=== PATIENT | female | born 1945 | race Caucasian/White ===

== ENCOUNTER → 2020-10-09 15:53 | Outpatient (CLI) | payer MEDICARE, OTHER, SELFPAY ==
--- NOTE | 2020-10-09 16:00 | XR_ITS ---
PROCEDURE: XR CHEST 2V CLINICAL HISTORY: rub on left Abnormal breath sounds COMPARISON: No exams were available for comparison FINDINGS: Normal heart size. Bipolar pacemaker is present from the right subclavian approach. There is an additional pacer wire noted from left subclavian approach terminating in the region of the right ventricle. The lungs are clear without infiltrates, suspicious nodules, or pleural effusions. No acute bony abnormalities. IMPRESSION: No acute findings. Dictated by: Aaron Melara MD 10/10/2020 11:43 Aaron Melara MD in [place] 10/10/2020 11:43
== END ==
PROVIDERS: PCP Family Medicine; Visit Provider Family Medicine
DX: M54.9 Dorsalgia, unspecified (principal)
CPT/HCPCS: 71046

== ENCOUNTER 2021-02-18 19:53 | Emergency (ER) | payer MEDICARE, OTHER, SELFPAY ==
[2021-02-18 20:42] VITALS: BP 147/66; PULSE 73; RESP 16; TEMP 36.7; O2SAT 96; BMI 20.7
--- NOTE | 2021-02-18 20:42 | ECG_ITS ---
APPROVED REPORT Exam: Resting ECG HR:65 bpm ECG Measurements Heart Rate 65 AXES CA 154 P 84 QRSd 66 QRS 44 QT 378 T 56 QTc 393 Conclusion Normal sinus rhythm Left atrial abnormality with nonspecific ST-T wave changes Abnormal ECG Electronically signed by : Emir Jeter, 02/20/2021 17:39:58
[2021-02-18 21:13] LABS: Basophils # 0.1 K/mm3 (0-0.2); Basophils % 0.7 % (0.1-2.0); Chloride 107 mmol/L (98-107); Eosinophils # 0.1 K/mm3 (0.0-0.4); Eosinophils % 0.8 % (0.1-12.0); Lymphocytes # 2.5 K/mm3 (0.7-4.5); Mean Corpuscular HGB Conc 32.6 g/dL (31.8-35.4); Mean Corpuscular Hemoglobin 32.1 pg (27.0-31.2); Mean Corpuscular Volume 98.6 fl (81-99); Mean Platelet Volume 7.8 fl (7.4-10.4); Monocytes # 1.1 K/mm3 (0.1-1.0); Monocytes % 7.1 % (1.7-9.3); Neutrophils # 11.9 K/mm3 (1.8-7.8); Neutrophils % 75.5 % (37.0-80.0); Platelet Count 267 K/mm3 (142-424); Potassium 3.9 mmoL/L (3.5-5.1); Red Blood Count 4.37 M/mm3 (4.20-5.40); Red Cell Distribution Width 12.9 % (11.5-17.5); Sodium 140 mmol/L (136-145); White Blood Count 15.7 K/mm3 (4.8-10.8)
[2021-02-18 21:16] LABS: Alanine Aminotransferase 13 U/L (12-78); Albumin Level 4.3 g/dl (3.5-5.0); Alkaline Phosphatase 114 U/L (38-126); Anion Gap 9.9 mEq/L (5-15); Aspartate Amino Transferase 21 U/L (14-36); Bilirubin,Direct 0.3 mg/dl (0.0-0.4); Bilirubin,Total 0.3 mg/dl (0.2-1.3); Blood Urea Nitrogen 15 mg/dl (7-17); Carbon Dioxide 27 mmol/L (22.0-30.0); Creatinine Clearance Estimated 38 mL/min (50-200); Estimated Glomerular Filt Rate 70 ml/min (>60); GFR (African American) 85 ML/MIN (>60); Glucose 104 mg/dl (74-100); Total Protein,Serum 7.3 g/dl (6.3-8.2)
[2021-02-18 21:20] LABS: MANUAL DIFFERENTIAL MANUAL DIFFERENTIAL (MANUAL DIFF)
[2021-02-18 21:26] LABS: Microscopic, Urine URINE MICROSCOPIC (MICROSCOPIC)
[2021-02-18 21:31] LABS: Troponin I < 0.01 ng/ml (0.00-0.034)
[2021-02-18 21:31] LABS: Appearance,Urine CLEAR (Clear); Bilirubin,Urine Negative (Negative); Blood, Urine Negative (Negative); Color,Urine YELLOW (Yellow); Glucose,Urine (UA) Negative (Negative); Ketones,Urine Negative (Negative); Leukocyte Esterase,Urine TRACE (Negative); Nitrate,Urine Negative (Negative); PH,Urine 6.5 (5.0-8.5); Protein,Urine Negative (Negative); Specific Gravity, Urine 1.015 (1.005-1.030); Urobilinogen,Urine 0.2 EU/dl (0.2)
[2021-02-18 21:34] LABS: T4 (Thyroxine) 7.9 ug/dl (5.53-11.0)
[2021-02-18 21:35] LABS: Bacteria,Urine 1+ /lpf; WBC,Urine Occasional #/hpf (0-3)
--- NOTE | 2021-02-18 21:42 | CT_ITS ---
PROCEDURE INFORMATION: Exam: CTA Chest With Contrast Exam date and time: 02/18/21 09:42 PM Age: 75 years old Clinical indication: Angina and other: Fast heart rate and hot flashes; Prior surgery; Surgery date: 6+ months; Surgery type: Pacemaker; Patient HX: Chest pain, hot flashes, fast heart rate; Additional info: RO pe TECHNIQUE: Imaging protocol: Computed tomographic angiography of the chest with contrast. 3D rendering (Not supervised by radiologist): MIP and/or 3D reconstructed images were created by the technologist. Radiation optimization: All CT scans at this facility use at least one of these dose optimization techniques: automated exposure control; mA and/or kV adjustment per patient size (includes targeted exams where dose is matched to clinical indication); or iterative reconstruction. Contrast material: ISOVUE 370; Contrast volume: 70 ml; Contrast route: INTRAVENOUS (IV); COMPARISON: CR XR CHEST 2V 10/09/20 04:03 PM FINDINGS: Pulmonary arteries: No CT evidence of pulmonary embolus. Aorta: No CT evidence of aortic dissection. Lungs: Mucous plugging left lower lobe bronchus. Patchy infiltrate left upper lobe laterally. Pleural spaces: Unremarkable. No pneumothorax. No pleural effusion. Heart: Unremarkable. No cardiomegaly. No pericardial effusion. Lymph nodes: Unremarkable. No enlarged lymph nodes. Gallbladder and bile ducts: Cholecystectomy. Kidneys and ureters: Hyperdense cyst ventral left midpole of the kidney. Multiphase cross-sectional imaging recommended for further characterization. Bones/joints: Unremarkable. No acute fracture. Soft tissues: Unremarkable. IMPRESSION: 1. No CT evidence of pulmonary embolus. 2. No CT evidence of aortic dissection. 3. Mucous plugging left lower lobe bronchus. 4. Hyperdense cyst ventral left midpole of the kidney. Multiphase cross-sectional imaging recommended for further characterization. 5. Cholecystectomy. 6. Patchy infiltrate left upper lobe laterally. COMMENTS: Consistent with the [employer]'s Incidental Findings Committee white paper (J Am Calderon Radiol 2018): Any incidental renal lesion less than 1 cm or classified as too small to characterize, or any incidental cystic renal lesion characterized as simple-appearing, is likely benign. No follow-up imaging is recommended for these lesions per consensus recommendations based on imaging criteria.
[2021-02-18 21:48] LABS: Lymphocytes % 11 % (10-50); Monocytes % 5 % (2-9); Neutrophils % 83 % (42-76); Platelet Estimate Normal; Stomatocytes 1+; Thyroid Stimulating Hormone 0.84 uIU/mL (0.465-4.68); Total Cells Counted 100
--- NOTE | 2021-02-18 23:46 | HMH.EDARPALP ---
ED Disposition Clinical Impression: Palpitations Disposition: Home, Self-Care Condition on Discharge: Good Prescriptions: Amoxicillin/Potassium Clav [Augmentin 875-125 Tablet] 1 tab PO Q12H #7 tab Prescription Printed Referrals: Jamil Villeda MD [Primary Care Provider] - - Critical Care Critical Care Time: No Attestation: On 02/18/21, the high probability of a clinically significant, sudden or life threatening deterioration of the following system(s) required my full and direct attention, intervention and personal management. The time I documented below is in addition to time spent performing reported procedures but includes the following listed in this critical care notation. Medical Decision Making - Medical Records Medical records reviewed: Yes: I reviewed the patient's medical records. - Alexey Inquiry Pt receiving controlled substance: No Vital Signs: 02/18/21 20:42 Temperature 98.0 F Temperature Source Oral Pulse Rate [Right Brachial] 73 Respiratory Rate 16 Blood Pressure [Right Arm] 147/66 H Blood Pressure Mean [Right Arm] 93 Blood Pressure Source [Right Arm] Automatic Cuff Blood Pressure Position [Right Arm] Sitting 02 Sat by Pulse Oximetry 96 Oxygen Delivery Method Room Air - Lab Data Lab Results 02/18/21 20:25: WBC 15.7 H, RBC 4.37, Hgb 14.0, Hct 43.0, MCV 98.6, MCH 32.1 H, MCHC 32.6, RDW 12.9, Plt Count 267, MPV 7.8, Neut % (Auto) 75.5, Lymph % (Auto) 16.0, [place] % (Auto) 7.1, Eos % (Auto) 0.8, Baso % (Auto) 0.7, Neut # (Auto) 11.9 H, Lymph # (Auto) 2.5, [place] # (Auto) 1.1 H, Eos # (Auto) 0.1, Baso # (Auto) 0.1, Total Counted 100, Neutrophils % (Manual) 83 H, Lymphocytes % (Manual) 11, Monocytes % (Manual) 5, Basophils % (Manual) 1.0, Platelet Estimate Normal, Stomatocytes 1+ 02/18/21 20:25: Sodium 140, Potassium 3.9, Chloride 107, Carbon Dioxide 27, Anion Gap 9.9, BUN 15, Creatinine 0.80, Estimated Creat Clear 38, Estimated GFR 70, Est GFR ( Amer) 85, Glucose 104 H, Calcium 9.0, Total Bilirubin 0.3, Direct Bilirubin 0.3, Conjugated Bilirubin 0.0, Indirect Bilirubin 0.0, Unconjugated Bilirubin 0.0, AST 21, ALT 13, Alkaline Phosphatase 114, Troponin I < 0.01, Total Protein 7.3, Albumin 4.3, TSH 0.84, Thyroxine (T4) 7.9 02/18/21 21:00: Urine Color Yellow, Urine Appearance Clear, Urine pH 6.5, Ur Specific [place] 1.015, Urine Protein Negative, Urine Glucose (UA) Negative, Urine Ketones Negative, Urine Blood Negative, Urine Nitrate Negative, Urine Bilirubin Negative, Urine Urobilinogen 0.2, Ur Leukocyte Esterase Trace, Urine WBC Occasional, Ur Squamous Epith Cells 3-5, Urine Bacteria 1+ Result diagrams: 02/18/21 20:25 02/18/21 20:25 Orders (Tests/Meds): ED MEDICATIONS Discontinued Medications Generic Name Dose Route Start Last Admin Trade Name Freq PRN Reason Stop Dose Admin Iopamidol 70 ml 02/18/21 22:06 02/18/21 22:08 Iopamidol-370 (76%);100ml Bottle IV 02/18/21 22:07 70 ml ONCE ONE Administration Sodium Chloride 40 ml 02/18/21 22:06 02/18/21 22:08 0.9 % Sodium Chloride 50 Ml Vial IV 02/18/21 22:07 40 ml ONCE ONE Administration Sodium Chloride 10 ml 02/18/21 22:06 02/18/21 22:08 Sodium Chloride 0.9% 10ml Syr (Rad Only) IV 02/18/21 22:07 10 ml ONCE ONE Administration ORDERS Category Date Time Status Troponin I Q3H Lab 02/18/21 23:50 Ordered Troponin I Q3H Lab 02/19/21 02:50 Ordered Medical Decision Narrative: Is a 75-year-old female who presents the emergency department today with palpitations and a warm sensation. Differential includes arrhythmia, ACS, PE. Basic labs obtained and are nonactionable. Troponin less than 1 initially. EKG showed normal sinus rhythm. CT PE ordered and showed a possible left upper lobe infiltrate. White count 15. Given prescription for Augmentin. Instructed to follow-up with slate roofer helper and primary care physician for possible Holter monitor. Also instructed to follow-up for lower extremity
[2021-02-18 23:53] VITALS: BP 142/74; PULSE 71; RESP 18; TEMP 36.8; O2SAT 98
== END 2021-02-18 23:56 | disposition home or self-care (01) ==
PROVIDERS: Emergency Provider Emergency Medicine; PCP Family Medicine
DX: R00.2 Palpitations (principal); N39.0 Urinary tract infection, site not specified; J44.9 Chronic obstructive pulmonary disease, unspecified; Z95.0 Presence of cardiac pacemaker; F17.210 Nicotine dependence, cigarettes, uncomplicated; Z96.641 Presence of right artificial hip joint; Z88.5 Allergy status to narcotic agent
CPT/HCPCS: 71275; 80048; 80076; 81001; 84436; 84443; 84484; 85007; 85025; 93005; 99283; Q9967

== ENCOUNTER → 2021-03-05 11:00 | Outpatient (CLI) | payer MEDICARE, OTHER, SELFPAY ==
--- NOTE | 2021-03-05 | CA_ITS ---
APPROVED REPORT Exam: Pharmacologic Technologist: Oriana Quintanilla, Ht: 5 ft 1 in Wt: 109 lbs BSA: 1.46 m2 HR: 61 bpm BP: 132/64 mmHg Medical History Medications: Omeprazole,,,,, Aspirin,,,,, Gabapentin,,,,, Lasix,,,,, Digoxin,,,,, DilTAZEM HCI,,,,, Stress Test Details Test: LEXISCAN HR Resting HR: 61 bpm Max Heart Rate (APMHR): 145.423549 bpm Max HR Achieved: 68 bpm Target HR (85% APMHR): 123.141847 bpm % of APMHR: 46.90 Recovery HR: 64 bpm BP Resting BP: 132/64 mmHg Max BP: 132/64 mmHg Recovery BP: 117.0/48.0 mmHg ECG Resting ECG: NSR, normal Clinical Exercise duration: 04:00 min Highest Stage Achieved: Exercise capacity: 1.0 METs Stress ECG Conclusion Symptoms: Mild SOA, mild nausea, malaise. No CP. Arrhythmias/Ectopy: None. ST-T Changes: No significant changes. Conclusion: Unremarkable Lexiscan stress. Myoview images reported separately. Electronically signed by : Jacky Luu, 03/07/2021 09:22:36
--- NOTE | 2021-03-05 11:00 | NM_ITS ---
APPROVED REPORT Exam: Nuclear Stress Test Indication: Abnormal EKG, Palpitations, CAD, Hx of [place], HTN, Tobacco use, Family history Patient Location: Outpatient Stress Tech: Oriana Quintanilla [place] Tech:Sushma Joiner, ARRT, RT (R)(N) Ht: 5 ft 1 in Wt: 109 lbs Bra Size: 32A HR: 61 bpm BP: 132/64 mmHg BSA: 1.46 m2 BMI: 20.5 History: Abnormal EKG, Palpitations, CAD, Hx of [place], HTN, Tobacco use, Family history Procedure: Patient received a 0.4 mg of intravenous Lexiscan, resting heart rate 61 bpm, resting blood pressure 132/64 mmHg, with Lexiscan maximum heart rate achived was 67 bpm which is % of the maximum predicted heart rate and blood pressure was 115/50 mmHg. With Lexiscan, patient denied any complaint of chest pain. Cardiac Stress and Resting SPECT Images: Cardiac Stress and Resting SPECT images were obtained using technetium 99m Myoview 31.6 mCi stress and 10.90 mCi at rest. Low EF of 49% with apical hypokinesia Fixed defect in the apex suggesting an area of infarction Small reversible defect holly apical region suggesting an area of ischemia Conclusion: Low EF of 49% with apical hypokinesia Fixed defect in the apex suggesting an area of infarction Reversible defect holly apical region and questionable reversible defect infero septal region suggesting areas of ischemia Electronically signed by : Aaron Melara MD 03/07/2021 10:53:33
--- NOTE | 2021-03-05 12:54 | HMH.ITSHM ---
Current Home Medications as stated by this patient Caro Walker or account development representative. []OMEPRAZOLE HYDOCODONE GABAPENTIN FUROSEMIDE DILTIAZEM DIGOXIN ASA
== END ==
PROVIDERS: PCP Family Medicine; Visit Provider Internal Medicine Cardiovascular Disease
DX: I51.7 Cardiomegaly (principal); R00.2 Palpitations; R61 Generalized hyperhidrosis; R94.31 Abnormal electrocardiogram [ECG] [EKG]; I48.0 Paroxysmal atrial fibrillation
CPT/HCPCS: 78452; 93017; 93306; A9502; J2785

== ENCOUNTER → 2021-04-02 06:48 | Outpatient (CLI) | payer SELFPAY ==
--- NOTE | 2021-04-02 06:50 | CT_ITS ---
PROCEDURE: CT HEART W CALCIUM SCORE CLINICAL HISTORY: abnormal stress test COMPARISON: No exams were available for comparison TECHNIQUE: Axial images obtained with sagittal and coronal reformats. All CT scans at the facility use one or more dose reduction, viz: automated exposure control, ma/kV adjustment per patient size (including targeted exams where dose is matched to indication, i.e. head), or iterative reconstruction technique. FINDINGS: Coronary artery calcium score is 700. Extensive calcific plaque burden with very high cardiovascular disease risk Artifact is present from bipolar pacemaker. There is a small area of ground-glass opacity in the left lower lobe posteriorly at 11 mm. IMPRESSION: Extensive calcific plaque burden with very high cardiovascular disease risk Dictated by: Aaron Melara MD 04/02/2021 16:11 Aaron Melara MD in [place] 04/02/2021 16:11
== END ==
PROVIDERS: PCP Family Medicine; Visit Provider Internal Medicine Cardiovascular Disease
DX: Z13.6 Encounter for screening for cardiovascular disorders (principal); R94.39 Abnormal result of other cardiovascular function study
CPT/HCPCS: 75571

== ENCOUNTER → 2021-04-11 08:00 | Outpatient (CLI) | payer MEDICARE, OTHER, SELFPAY | PROVIDERS: Visit Provider Family Medicine | DX: L08.9 Local infection of the skin and subcutaneous tissue, unspecified (principal); T14.8XXA Other injury of unspecified body region, initial encounter | CPT/HCPCS: 87070; 87077; 87186; 87205 ==

== ENCOUNTER → 2021-05-14 11:36 | Outpatient (CLI) | payer MEDICARE, OTHER, SELFPAY ==
[2021-05-14 12:26] LABS: Basophils # 0.1 K/mm3 (0-0.2); Basophils % 0.6 % (0.1-2.0); Eosinophils # 0.1 K/mm3 (0.0-0.4); Eosinophils % 0.7 % (0.1-12.0); Hematocrit 48.1 % (37.0-47.0); Hemoglobin 15.2 g/dL (12.2-16.2); Lymphocytes # 3.9 K/mm3 (0.7-4.5); Lymphocytes % 28.7 % (10-50); Mean Corpuscular HGB Conc 31.6 g/dL (31.8-35.4); Mean Corpuscular Hemoglobin 32.7 pg (27.0-31.2); Mean Corpuscular Volume 103.7 fl (81-99); Mean Platelet Volume 7.5 fl (7.4-10.4); Monocytes # 0.9 K/mm3 (0.1-1.0); Monocytes % 6.3 % (1.7-9.3); Neutrophils # 8.6 K/mm3 (1.8-7.8); Neutrophils % 63.7 % (37.0-80.0); Platelet Count 306 K/mm3 (142-424); Red Blood Count 4.64 M/mm3 (4.20-5.40); Red Cell Distribution Width 13.4 % (11.5-17.5); White Blood Count 13.5 K/mm3 (4.8-10.8)
[2021-05-14 13:33] LABS: Chloride 106 mmol/L (98-107); Potassium 4.8 mmoL/L (3.5-5.1); Sodium 141 mmol/L (136-145)
[2021-05-14 13:36] LABS: Anion Gap 13.8 mEq/L (5-15); Blood Urea Nitrogen 11 mg/dl (7-17); Calcium 9.4 mg/dl (8.4-10.2); Carbon Dioxide 26 mmol/L (22.0-30.0); Estimated Glomerular Filt Rate 82 ml/min (>60); GFR (African American) 99 ML/MIN (>60); Glucose 94 mg/dl (74-100)
== END ==
PROVIDERS: Visit Provider Internal Medicine Cardiovascular Disease
DX: I10 Essential (primary) hypertension (principal); I48.0 Paroxysmal atrial fibrillation; R93.1 Abnormal findings on diagnostic imaging of heart and coronary circulation; R94.31 Abnormal electrocardiogram [ECG] [EKG]; R94.39 Abnormal result of other cardiovascular function study; Z95.0 Presence of cardiac pacemaker; Z01.812 Encounter for preprocedural laboratory examination; Z20.822 Contact with and (suspected) exposure to COVID-19; U07.1 COVID-19
CPT/HCPCS: 36415; 80048; 85025; C9803; U0003; U0005

== ENCOUNTER 2021-09-03 13:27 | Emergency (ER) | payer MEDICARE, OTHER, SELFPAY ==
[2021-09-03 15:10] VITALS: BP 149/70; PULSE 72; RESP 20; TEMP 36.8; O2SAT 98; BMI 20.9
--- NOTE | 2021-09-03 16:00 | HMH.EDUTC ---
[facility] [place] Impression: Nausea Disposition: Home, Self-Care Condition on Discharge: Good Instructions: DI for Nausea -- Adult, Ondansetron Additional Instructions: Drink extra fluids with and between meals. If you have difficulty drinking, try very small amounts of water or suck on ice chips. ? Avoid fruit juices, as these do not replace minerals and can actually increase diarrhea. ? Children and adults can use sports drinks to replenish electrolytes. Younger children and infants should use products formulated for children, like oral rehydration solutions. ? Eat food in small amounts and let your stomach recover. ? Get lots of rest. You may feel tired or weak. ? No greasy or fried foods for the next 24-48 hours BRAT diet Bananas Rice Apples and [place] ? Make sure to drink plenty of liquids ? Return if needed ? Straight to ER if any life threatening symptoms ? Zofran as prescribed ? Follow up with family doctor in the next 48-72 hours if no improvement or any worsening of symptoms Prescriptions: Ondansetron [Zofran 4mg ODT] 4 mg PO TIDP PRN #20 tab PRN Reason: Nausea Transmission Status: Pending to [facility] Referrals: Jamil Villeda MD [Primary Care Provider] - As needed Medical Decision Making - Alexey Inquiry Pt receiving controlled substance: No Alexey was queried for this patient: No Vital Signs: 09/03/21 15:10 Temperature 98.2 F Temperature Source Oral Pulse Rate [Left Brachial] 72 Respiratory Rate 20 Blood Pressure [Left Arm] 149/70 H Blood Pressure Mean [Left Arm] 96 Blood Pressure Source [Left Arm] Automatic Cuff Blood Pressure Position [Left Arm] Sitting 02 Sat by Pulse Oximetry 98 Oxygen Delivery Method Room Air Orders (Tests/Meds): ED MEDICATIONS Discontinued Medications Generic Name Dose Route Start Last Admin Trade Name Freq PRN Reason Stop Dose Admin Ondansetron HCl 4 mg 09/03/21 16:10 09/03/21 16:12 Ondansetron 4mg Odt SL 09/03/21 16:11 4 mg ONCE ONE Administration Medical Decision Narrative: Patient state that she has taken zofran before without complications or reactions [facility] [place] - General Stated complaint: nausea, rapid HR Time Seen by Provider: 09/03/21 16:05 Mode of Arrival: Ambulatory Source of Information: Patient Limitations: No Limitations Description of Symptoms (Recalled from Triage Doc. by RN): PATIENT C/O NAUSEA AND A FEELING OF A HEARTBEAT IN HER UPPER ABDOMEN. SHE STATES IT HAS BEEN GOING ON FOR A WHILE AND HAS SEEN SEVERAL PROVIDERS REGARDING THESE SYMPTOMS BUT IS NOT BETTER HEENT Symptoms (Recalled from RN notes): No Resp Symptoms (Recalled from RN notes): No Skin Symptoms (Recalled from RN notes): No MS Symptoms (Recalled from RN notes): No Functional Status (Recalled from RN notes): WNL - History of Present Illness Provider Complaint: Patient state that she has been undergoing testing and xrays to see why she is having nausea and pain on and off State that today she has been having nausea and feeling like she is going to vomit and she is out of her nausea medication and she came in to see if she could get some while she is waiting to be seen by GI Denies pain today - Related Data Home Medications Medication Instructions Recorded Confirmed aspirin 81 mg tablet,delayed 81 mg PO DAILY 02/21/21 08/13/21 release furosemide 20 mg tablet 20 mg PO DAILY tab 02/21/21 08/13/21 Previous Rx's Medication Instructions Recorded omeprazole 20 mg capsule,delayed 20 mg PO DAILY #90 cap 09/28/20 release nicotine 14 mg/24 hr daily 1 patch TRANSDERMA Q24H #28 each 02/25/21 transdermal patch atorvastatin 20 mg tablet 20 mg PO DAILY #90 tab 03/07/21 digoxin 125 mcg (0.125 mg) tablet 125 mcg PO DAILY #30 tab 04/11/21 diltiazem HCl 120 mg 120 mg PO QHS #30 cap 04/11/21 capsule,extended release 12 hr diltiazem HCl 240 mg 240 mg PO DAILY #30 cap 04/11/21 capsule,extended release 24 hr mupirocin 2 % topical
[2021-09-03 16:13] VITALS: BP 149/70; PULSE 72; RESP 20; TEMP 36.8; O2SAT 98
== END 2021-09-03 16:18 | disposition home or self-care (01) ==
PROVIDERS: Emergency Provider Nurse Practitioner; PCP Family Medicine
DX: R11.2 Nausea with vomiting, unspecified (principal); I48.91 Unspecified atrial fibrillation; I10 Essential (primary) hypertension; Z95.0 Presence of cardiac pacemaker; Z96.641 Presence of right artificial hip joint; F17.210 Nicotine dependence, cigarettes, uncomplicated; J44.9 Chronic obstructive pulmonary disease, unspecified; Z79.899 Other long term (current) drug therapy
CPT/HCPCS: G0463; 99202

== ENCOUNTER 2022-03-28 16:52 | Emergency (ER) | payer MEDICARE, OTHER, SELFPAY ==
[2022-03-28 16:53] VITALS: BP 138/41; PULSE 72; RESP 16; TEMP 37.2; O2SAT 98; BMI 20.9
--- NOTE | 2022-03-28 17:36 | XR_ITS ---
PROCEDURE INFORMATION: Exam: XR Left Ankle Exam date and time: 03/28/2022 5:37 PM Age: 76 years old Clinical indication: Pain; Swelling, leg or foot; Ankle; Left TECHNIQUE: Imaging protocol: Radiologic exam of the Left ankle. Views: 3 or more views. COMPARISON: No relevant prior studies available. FINDINGS: Bones/joints: Small plantar calcaneal spur. Question mild Robyn deformity of the superior margin of the posterior calcaneal tubercle. No fractures. Osteopenia. No blastic or lytic lesions. The ankle mortise joint is well maintained. No joint effusion. The visualized hindfoot and midfoot are grossly well aligned. No hindfoot coalition. Soft tissues: No periostitis or osteolysis. Moderate soft tissue swelling around the ankle and distal leg, predominantly laterally IMPRESSION: 1. No osseous injuries. 2. Moderate soft tissue swelling, predominantly laterally, nonspecific. 3. Small plantar calcaneal spur and mild Robyn deformity.
--- NOTE | 2022-03-28 17:37 | XR_ITS ---
PROCEDURE INFORMATION: Exam: XR Left Foot Exam date and time: 03/28/2022 5:39 PM Age: 76 years old Clinical indication: Pain; Foot; Left TECHNIQUE: Imaging protocol: Radiologic exam of the Left foot. Views: 3 or more views. COMPARISON: CR XR ANKLE LT MIN 3V 03/28/2022 5:37 PM FINDINGS: Bones/joints: Osteopenia. No fractures. Normal alignment is maintained in the midfoot, hindfoot, and forefoot. Minor interphalangeal osteoarthritic changes and minor osteoarthritic changes in the midfoot. No blastic or lytic lesions. Small bunion at the medial 1st metatarsal head. No gross ankle joint effusion. No hindfoot coalition. Small plantar calcaneal spur. Soft tissues: No periostitis or osteolysis. Moderate soft tissue swelling around the ankle. No radiopaque foreign bodies. IMPRESSION: 1. No fractures are identified. 2. Osteopenia and mild osteoarthritic changes with small bunion. 3. Mild plantar calcaneal spurring. 4. Soft tissue swelling around the ankle.
--- NOTE | 2022-03-28 18:58 | HMH.EDGENADL ---
ED Disposition Clinical Impression: Left leg swelling Disposition: Home, Self-Care Condition on Discharge: Good Additional Instructions: You will receive a call tomorrow from the vascular lab giving you a time to come in for a Doppler of the lower leg. Follow-up with primary care provider next week. Referrals: Jamil Villeda MD [Primary Care Provider] - - Critical Care Critical Care Time: No Attestation: On 03/28/22, the high probability of a clinically significant, sudden or life threatening deterioration of the following system(s) required my full and direct attention, intervention and personal management. The time I documented below is in addition to time spent performing reported procedures but includes the following listed in this critical care notation. Medical Decision Making - Alexey Inquiry Pt receiving controlled substance: No Vital Signs: 03/28/22 16:53 Temperature 99 F Temperature Source Oral Pulse Rate [Radial] 72 Respiratory Rate 16 Blood Pressure [Right Arm] 138/41 L Blood Pressure Mean [Right Arm] 73 Blood Pressure Position [Right Arm] Sitting 02 Sat by Pulse Oximetry 98 Oxygen Delivery Method Room Air - Lab Data Lab Results 03/28/22 19:01: WBC 9.4, RBC 4.40, Hgb 14.1, Hct 45.3, MCV 102.9 H, MCH 32.1 H, MCHC 31.2 L, RDW 13.0, Plt Count 262, MPV 8.0, Neut % (Auto) 58.7, Lymph % (Auto) 27.9, [place] % (Auto) 10.5 H, Eos % (Auto) 1.6, Baso % (Auto) 1.4, Neut # (Auto) 5.5, Lymph # (Auto) 2.6, [place] # (Auto) 1.0, Eos # (Auto) 0.2, Baso # (Auto) 0.1 03/28/22 19:01: Sodium 137, Potassium 4.5, Chloride 102, Carbon Dioxide 33 H, Anion Gap 6.5, BUN 13, Creatinine 0.70, Estimated Creat Clear 38, Estimated GFR 81, Est GFR ( Amer) 98, Glucose 102 H, Calcium 8.9, Total Bilirubin < 0.1 L, AST 167 H, ALT 107 H, Alkaline Phosphatase 164 H, Total Protein 6.9, Albumin 3.8, Globulin 3.1, Albumin/Globulin Ratio 1.2 03/28/22 19:01: D-Dimer 0.97 H Result diagrams: 03/28/22 19:01 03/28/22 19:01 - Radiology Data #1 Image(s): Ankle, Foot/Toes Image Reviewed: Yes I have reviewed radiologist's interpretation PROCEDURE INFORMATION: Exam: XR Left Foot Exam date and time: 03/28/2022 5:39 PM Age: 76 years old Clinical indication: Pain; Foot; Left TECHNIQUE: Imaging protocol: Radiologic exam of the Left foot. Views: 3 or more views. COMPARISON: CR XR ANKLE LT MIN 3V 03/28/2022 5:37 PM FINDINGS: Bones/joints: Osteopenia. No fractures. Normal alignment is maintained in the midfoot, hindfoot, and forefoot. Minor interphalangeal osteoarthritic changes and minor osteoarthritic changes in the midfoot. No blastic or lytic lesions. Small bunion at the medial 1st metatarsal head. No gross ankle joint effusion. No hindfoot coalition. Small plantar calcaneal spur. Soft tissues: No periostitis or osteolysis. Moderate soft tissue swelling around the ankle. No radiopaque foreign bodies. IMPRESSION: 1. No fractures are identified. 2. Osteopenia and mild osteoarthritic changes with small bunion. 3. Mild plantar calcaneal spurring. 4. Soft tissue swelling around the ankle. EDURE INFORMATION: Exam: XR Left Ankle Exam date and time: 03/28/2022 5:37 PM Age: 76 years old Clinical indication: Pain; Swelling, leg or foot; Ankle; Left TECHNIQUE: Imaging protocol: Radiologic exam of the Left ankle. Views: 3 or more views. COMPARISON: No relevant prior studies available. FINDINGS: Bones/joints: Small plantar calcaneal spur. Question mild Robyn deformity of the superior margin of the posterior calcaneal tubercle. No fractures. Osteopenia. No blastic or lytic lesions. The ankle mortise joint is well maintained. No joint effusion. The visualized hindfoot and midfoot are grossly well aligned. No hindfoot coalition. Soft tissues: No periostitis or osteolysis. Moderate soft tissue swell
--- NOTE | 2022-03-28 19:11 | PC.NURSE ---
at speaking with pt about POC
[2022-03-28 19:12] LABS: Basophils # 0.1 K/mm3 (0-0.2); Basophils % 1.4 % (0.1-2.0); Eosinophils # 0.2 K/mm3 (0.0-0.4); Eosinophils % 1.6 % (0.1-12.0); Hematocrit 45.3 % (37.0-47.0); Hemoglobin 14.1 g/dL (12.2-16.2); Lymphocytes # 2.6 K/mm3 (0.7-4.5); Lymphocytes % 27.9 % (10-50); Mean Corpuscular HGB Conc 31.2 g/dL (31.8-35.4); Mean Corpuscular Hemoglobin 32.1 pg (27.0-31.2); Mean Corpuscular Volume 102.9 fl (81-99); Monocytes % 10.5 % (1.7-9.3); Neutrophils # 5.5 K/mm3 (1.8-7.8); Neutrophils % 58.7 % (37.0-80.0); Platelet Count 262 K/mm3 (142-424); White Blood Count 9.4 K/mm3 (4.8-10.8)
--- NOTE | 2022-03-28 19:30 | PC.NURSE ---
Rounded on pt at this time. PT had no needs and asked when she could go. Advised her MD in pt room at this time but I would speak with him.
[2022-03-28 19:35] LABS: Alanine Aminotransferase 107 U/L (12-78); Albumin Level 3.8 g/dl (3.5-5.0); Albumin/Globulin Ratio 1.2 (1.1-1.8); Alkaline Phosphatase 164 U/L (38-126); Anion Gap 6.5 mEq/L (5-15); Aspartate Amino Transferase 167 U/L (14-36); Bilirubin,Total < 0.1 mg/dl (0.2-1.3); Blood Urea Nitrogen 13 mg/dl (7-17); Calcium 8.9 mg/dl (8.4-10.2); Carbon Dioxide 33 mmol/L (22.0-30.0); Chloride 102 mmol/L (98-107); Creatinine Clearance Estimated 38 mL/min (50-200); Estimated Glomerular Filt Rate 81 ml/min (>60); GFR (African American) 98 ML/MIN (>60); Globulin 3.1 g/dL (1.3-3.2); Glucose 102 mg/dl (74-100); Potassium 4.5 mmoL/L (3.5-5.1); Sodium 137 mmol/L (136-145); Total Protein,Serum 6.9 g/dl (6.3-8.2)
[2022-03-28 19:41] LABS: D-Dimer 0.97 ug/mL (0.0-0.5)
--- NOTE | 2022-03-28 20:32 | PC.NURSE ---
Confirmed with patient a good contact number for her, and advised her someone should be calling her tomorrow about getting her doppler scheduled. Pt verbalized understanding. Notified resp of the order.
[2022-03-28 20:36] VITALS: BP 138/41; PULSE 72; RESP 16; TEMP 37.2; O2SAT 98
== END 2022-03-28 20:37 | disposition home or self-care (01) ==
PROVIDERS: Emergency Provider Emergency Medicine; PCP Family Medicine
DX: M25.572 Pain in left ankle and joints of left foot (principal); M25.472 Effusion, left ankle; I10 Essential (primary) hypertension; I48.91 Unspecified atrial fibrillation; E03.9 Hypothyroidism, unspecified; M54.9 Dorsalgia, unspecified; M85.80 Other specified disorders of bone density and structure, unspecified site; K82.9 Disease of gallbladder, unspecified; F17.210 Nicotine dependence, cigarettes, uncomplicated; M77.32 Calcaneal spur, left foot; M92.60 Juvenile osteochondrosis of tarsus, unspecified ankle; Z79.82 Long term (current) use of aspirin; Z88.0 Allergy status to penicillin; Z88.5 Allergy status to narcotic agent; Z95.0 Presence of cardiac pacemaker; Z96.641 Presence of right artificial hip joint; Z84.1 Family history of disorders of kidney and ureter
CPT/HCPCS: 36415; 73610; 73630; 80053; 85025; 85378; 96372; 99284

== ENCOUNTER → 2022-03-29 11:22 | Outpatient (CLI) | payer MEDICARE, OTHER, SELFPAY ==
--- NOTE | 2022-03-29 | CA_ITS ---
FINAL REPORT TECHNIQUE: Color Doppler, duplex Doppler and compression sonography of the left lower extremity deep venous systems was performed. CLINICAL HISTORY: Patient scratched left leg on particle board 5 weeks ago. She states it began getting red and swollen 2 days later. She was treated by her PCP with antibiotics for 10 days. She saw some improvement. Left leg is remaining swollen except for at night when she elevates it. Left leg is much worse when she is up on it. She notes there is a knot just proximal to her left ankle on the lateral aspect. She takes 81 mg ASA daily and received a Lovenox injection in ER last evening. AFIB, COPD, HTN, pacemaker, smoker. FINDINGS: There is no evidence of deep venous thrombosis from the level of the groin to the calf. The veins are patent and compressible. An enlarged left inguinal lymph node is noted which may be reactive. IMPRESSION: No evidence of deep venous thrombosis left lower extremity. Reviewed, Interpreted and Dictated by Hi Guadarrama III, MD Transcribed by Maira Montelongo Authenticated and [facility]
== END ==
PROVIDERS: PCP Family Medicine; Visit Provider Emergency Medicine
DX: M79.605 Pain in left leg (principal); R60.0 Localized edema
CPT/HCPCS: 93971

== ENCOUNTER → 2022-05-22 06:12 | Outpatient (CLI) | payer MEDICARE, OTHER, SELFPAY ==
[2022-05-22 19:04] LABS: MANUAL DIFFERENTIAL MANUAL DIFFERENTIAL (MANUAL DIFF)
[2022-05-22 19:20] LABS: Basophils # 0.1 K/mm3 (0-0.2); Basophils % 0.8 % (0.1-2.0); Chloride 99 mmol/L (98-107); Eosinophils # 0.1 K/mm3 (0.0-0.4); Eosinophils % 1.1 % (0.1-12.0); Hematocrit 46.6 % (37.0-47.0); Hemoglobin 14.7 g/dL (12.2-16.2); Lymphocytes # 2.8 K/mm3 (0.7-4.5); Lymphocytes % 26.6 % (10-50); Mean Corpuscular HGB Conc 31.5 g/dL (31.8-35.4); Mean Corpuscular Hemoglobin 31.4 pg (27.0-31.2); Mean Corpuscular Volume 99.6 fl (81-99); Mean Platelet Volume 8.4 fl (7.4-10.4); Monocytes % 9.1 % (1.7-9.3); Neutrophils # 6.6 K/mm3 (1.8-7.8); Neutrophils % 62.5 % (37.0-80.0); Platelet Count 368 K/mm3 (142-424); Red Blood Count 4.68 M/mm3 (4.20-5.40); Red Cell Distribution Width 13.1 % (11.5-17.5); Sodium 139 mmol/L (136-145); White Blood Count 10.5 K/mm3 (4.8-10.8)
[2022-05-22 19:23] LABS: Alanine Aminotransferase 27 U/L (12-78); Albumin/Globulin Ratio 1.3 (1.1-1.8); Alkaline Phosphatase 140 U/L (38-126); Aspartate Amino Transferase 28 U/L (14-36); Blood Urea Nitrogen 13 mg/dl (7-17); Estimated Glomerular Filt Rate 81 ml/min (>60); GFR (African American) 98 ML/MIN (>60); Globulin 3.1 g/dL (1.3-3.2); Total Protein,Serum 7.1 g/dl (6.3-8.2)
[2022-05-22 19:24] LABS: Calcium 8.9 mg/dl (8.4-10.2); Carbon Dioxide 30 mmol/L (22.0-30.0); Glucose 135 mg/dl (74-100)
[2022-05-22 19:25] LABS: Bilirubin,Total < 0.1 mg/dl (0.2-1.3)
[2022-05-22 19:55] LABS: Thyroid Stimulating Hormone 1.13 uIU/mL (0.465-4.68)
[2022-05-22 21:10] LABS: Lymphocytes % 33 % (10-50); Macrocytosis 1+; Monocytes % 3 % (2-9); Neutrophils % 64 % (42-76); Platelet Estimate Normal; Stomatocytes 1+; Total Cells Counted 100
== END ==
PROVIDERS: PCP Family Medicine; Visit Provider Family Medicine
DX: I10 Essential (primary) hypertension (principal); M79.89 Other specified soft tissue disorders
CPT/HCPCS: 80053; 84443; 85007; 85014; 85018; 85048; 85049

== ENCOUNTER → 2022-05-30 10:44 | Outpatient (CLI) | payer MEDICARE, OTHER, SELFPAY ==
--- NOTE | 2022-05-30 11:06 | CT_ITS ---
FINAL REPORT TECHNIQUE: Noncontrast exam CLINICAL HISTORY: nausea / RUQ pain FINDINGS: Abdomen: Lung bases are clear. Changes from cholecystectomy. Liver, spleen, pancreas and adrenal glands have a normal CT appearance in their limited unenhanced state. Minimal right nephrolithiasis without obstruction. No obvious renal mass is present. No ureteral stones are present. Pelvis: No distal ureteral stones are seen. Bladder is unremarkable. Moderate sigmoid diverticulosis. Prior hysterectomy. No evidence of appendicitis. No fluid collection or adenopathy is seen. IMPRESSION: No acute findings. Minimal right nephrolithiasis without obstruction. Reviewed, Interpreted and Dictated by Abad Martin MD Transcribed by Marco Duarte Authenticated and [facility]
== END ==
PROVIDERS: PCP Family Medicine; Visit Provider Family Medicine
DX: R10.11 Right upper quadrant pain (principal); R11.0 Nausea
CPT/HCPCS: 74176

== ENCOUNTER → 2022-06-20 08:39 | Outpatient (CLI) | payer MEDICARE, OTHER, SELFPAY ==
--- NOTE | 2022-06-20 08:49 | FL_ITS ---
FINAL REPORT CLINICAL HISTORY: .3.49 fluoro time abd pain FINDINGS: UPPER GI AND SMALL BOWEL FOLLOW THROUGH HISTORY: Nausea for one year. PROCEDURE: Patient ingested thick and thin barium contrast. Effervescent crystals were also administered. Spot and overhead films were performed. Additional barium was administered for small bowel follow through. A total of 30 images were saved. FINDINGS: UGI: There is a small sliding type hiatal hernia. There is gastroesophageal reflux seen to the distal esophagus. There is esophageal dysmotility. 13 mm barium tablet is delayed in the mid esophagus, but does pass with subsequent swallows. Rugal fold pattern of the stomach is grossly unremarkable. Duodenal bulb is normal There is a moderate duodenal diverticulum in the third portion of the duodenum. SBFT: Machine Stuffer Automatic demonstrates a moderate amount of stool in the colon. Small bowel mucosal fold pattern is unremarkable. Transit time of contrast to the colon is normal. Spot images of the terminal ileum are normal. FLUOROSCOPY TIME: 3 minutes 49 seconds IMPRESSION: Small sliding type hiatal hernia with mild reflux. Esophageal dysmotility. Duodenal diverticulum. Unremarkable small bowel follow through. Reviewed, Interpreted and Dictated by Hi Guadarrama III, MD Transcribed by Chanda Padilla PA-C Authenticated and . [facility]
== END ==
PROVIDERS: PCP Family Medicine; Visit Provider Surgery
DX: R11.0 Nausea (principal)
CPT/HCPCS: 74246; 74248

== ENCOUNTER → 2022-06-23 09:57 | Outpatient (CLI) | payer MEDICARE, OTHER, SELFPAY ==
--- NOTE | 2022-06-23 09:58 | NM_ITS ---
FINAL REPORT CLINICAL HISTORY: nausea, abd pain FINDINGS: NUCLEAR MEDICINE GASTRIC EMPTYING STUDY Sequential anterior projection images were obtained after ingesting a radiolabeled with 0.48 mCi technetium 99m sulfur colloid. One half time gastric emptying is 133 minutes which is abnormally long. IMPRESSION: Abnormally long gastric emptying time. Reviewed, Interpreted and Dictated by Hi Guadarrama III, MD Transcribed by Maira Montelongo Authenticated and [facility]
--- NOTE | 2022-06-23 10:03 | XR_ITS ---
FINAL REPORT CLINICAL HISTORY: CHECKING FOR BARIUM FOR NUC SCAN FINDINGS: A single view of the abdomen was obtained. There is a nonobstructive bowel gas pattern. There is moderate amount of retained contrast in the colon, greatest distally. Postoperative changes are seen from right hip arthroplasty. Postoperative changes are in the right upper quadrant. IMPRESSION: Moderate amount of retained contrast in the colon, greatest distally. Reviewed, Interpreted and Dictated by Hi Guadarrama III, MD Transcribed by Maira Montelongo Authenticated and [facility]
== END ==
PROVIDERS: PCP Family Medicine; Visit Provider Surgery
DX: R11.0 Nausea (principal); R10.11 Right upper quadrant pain
CPT/HCPCS: 74018; 78264; A9541

== ENCOUNTER 2022-09-25 09:46 | Day surgery (SDC) | payer MEDICARE, OTHER, SELFPAY ==
[2022-09-24 09:56] VITALS: BMI 22.6
[2022-09-25 09:56] VITALS: BP 138/63; PULSE 70; RESP 16; TEMP 36.4; O2SAT 98
--- NOTE | 2022-09-25 10:15 | P.PN_ITS ---
[facility] Disclaimer: The information contained in this section may have been updated after the patient was seen, as this information can be updated by other users. 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 Back Pain History of pacemaker HLD (hyperlipidemia) Surgical History History of cholecystectomy History of colonoscopy History of hysterectomy History of right hip replacement Family History Other Family history of cancer Family history of hypertension Family history of stroke Social History Smoking Status: Current every day smoker years smoked: 60 quit status: not considering quitting alcohol intake: never substance use type: denies use current occupational status: retired Travel in the last 8 weeks: None household members: spouse housing: house lives independently: Yes marital status: education level: middle school caffeine: Yes special coretta needs: No agree to transfusion: No do you feel safe at home: Yes victim of physical abuse: No victim of emotional abuse: No victim of sexual abuse: No would you like helpful sources: No [facility] Anesthesia Checklist Patient Identification Patient Identification: Arm Band and Verbal (Name & ) Structural Data Admitted From: Home Planned Operative Procedure/s: EGD Consent for Planned Operative Procedure(s) Verified: Yes NPO Status Verified Time NPO: 00:00 Airway Assessment C-Spine Mobility Assessed: Yes TMJ Mobility Assessed: Yes Dentition: Edentulous Neurological Assessment Level of Consciousness: Awake Hx Seizures: No Numbness or tingling in extremities: No Anesthesia Plan Anesthesia Risk discussed: Yes Anesthesia Plan: Verified ASA Class: III Anesthesia Type: MAC
[2022-09-25 10:22] VITALS: O2SAT 98
--- NOTE | 2022-09-25 10:32 | HMH.SCOPE ---
Procedure: Date: 09/25/22 Patient Date of :: 1945 Procedure Performed:: Diagnostic EGD Indications:: Abnormal CT scan Performing Provider:: Janet Fraga MD Referring Provider:: Jamil Villeda Sedation:: Propofol Procedure:: The gastroscope was gently passed through the incisoral orifice into the oral cavity and under direct visualization the esophagus was intubated. The endoscope was passed down the esophagus, through the stomach, and into the duodenum. Color, texture, mucosa, and anatomy of the esophagus, stomach, and duodenum were carefully examined with the scope. Findings:: Oropharynx: normal Esophagus: normal EG Junction: intact at 40 cm, no hiatus hernia Cardia: normal Fundus: normal Body: normal, random biopsies obtained Antrum: normal, no mass or ulcers Duodenal bulb: normal Duodenum (second and third portion): normal Impression: Normal EGD, random biopsies obtained Specimens:: Gastric Recommendations:: Routine GI follow up on a PRN basis Complications:: None Estimated blood obtained (mL): 0
[2022-09-25 10:35] VITALS: BP 92/42; PULSE 61; RESP 17; TEMP 36.2; O2SAT 91
[2022-09-25 10:45] VITALS: BP 99/42; PULSE 60; RESP 16; O2SAT 93
[2022-09-25 10:55] VITALS: BP 114/52; PULSE 67; RESP 16; O2SAT 97
[2022-09-25 11:05] VITALS: BP 104/51; PULSE 61; RESP 17; O2SAT 96
== END 2022-09-25 11:05 | disposition home or self-care (01) ==
PROVIDERS: PCP Family Medicine; Visit Provider Internal Medicine Gastroenterology
PROC: 0DJ08ZZ Inspection of Upper Intestinal Tract, Via Natural or Artificial Opening Endoscopic (ICD-10-PCS; CPT 43235; principal; 2022-09-25 11:00)
DX: R93.3 Abnormal findings on diagnostic imaging of other parts of digestive tract (principal); F17.200 Nicotine dependence, unspecified, uncomplicated; Z79.899 Other long term (current) drug therapy; K29.70 Gastritis, unspecified, without bleeding
CPT/HCPCS: 43239; 88305

== ENCOUNTER → 2023-03-13 09:06 | Outpatient (CLI) | payer MEDICARE, OTHER, SELFPAY ==
--- NOTE | 2023-03-13 09:13 | XR_ITS ---
FINAL REPORT TECHNIQUE: Bone densitometry calculations of the lumbar spine and left hip were obtained. CLINICAL HISTORY: . POST MENOPAUSAL SCREENING, HX MYELOMA FINDINGS: Using L1-4, the bone mineral density of the spine is 0.864 g/cm2, corresponding to T-score of -1.7. Using the left hip, the bone mineral density of the femoral neck is 0.748 g/cm2, corresponding to a T-score of -1.6. Using the 1/3 radius, the bone mineral density of the radius is 0.487 g/cm2, corresponding to a T-score of -3.5. NOTE: T-score: Standard deviation compared with peak bone mass of young adult mean. *Following the recommendations of the International Society of Bone Densitometry, classification of hip BMD is based on the lower of two T-scores; total hip or femoral neck. IMPRESSION: Osteoporosis: Lowest T-score is at or below -2.5. This patient''s T-score meets the World Health Organization criteria for osteoporosis. FRAX data reports 16% major osteoporotic fracture and 5.1% hip fracture. Reviewed, Interpreted and Dictated by Hi Guadarrama III, MD Transcribed by Bambi Light Authenticated and . [facility]
--- NOTE | 2023-03-13 09:13 | CT_ITS ---
FINAL REPORT CLINICAL HISTORY: Dizziness x 2 months COMPARISON: None FINDINGS: Axial images of the head were obtained without contrast. Coronal and sagittal reformatted images were also obtained.This study was performed with techniques to keep radiation doses as low as reasonably achievable (ALARA). Individualized dose reduction techniques using automated exposure control or adjustment of mA and/or kV according to the patient's size were employed. There is no evidence of intracranial hemorrhage or mass. The ventricular size is within normal limits. There is no evidence of shift of the midline structures. No abnormal extra axial fluid collection is identified. No skull abnormality is seen on the bone window images. Mild soft tissue thickening is noted in the sphenoid and ethmoid sinuses. IMPRESSION: No acute intracranial abnormality. Reviewed, Interpreted and Dictated by Hi Guadarrama III, MD Transcribed by Tuyet Galvez Authenticated and . [facility]
== END ==
PROVIDERS: PCP Family Medicine; Visit Provider Family Medicine
DX: R42 Dizziness and giddiness (principal); M15.4 Erosive (osteo)arthritis; Z80.7 Family history of other malignant neoplasms of lymphoid, hematopoietic and related tissues; Z78.0 Asymptomatic menopausal state
CPT/HCPCS: 70450; 77080

== ENCOUNTER 2023-09-16 18:14 | Outpatient (CLI) | payer MEDICARE, OTHER, SELFPAY ==
[2023-09-16 19:15] LABS: Amphetamine/Metha Screen,Urine Negative ng/ml (<1000)
[2023-09-16 19:16] LABS: Barbiturates Screen,Urine Negative ng/ml (<200); Benzodiazepines Screen,Urine Negative ng/ml (<200)
[2023-09-16 19:17] LABS: Cannabinoid Screen,Urine Negative ng/ml (<50); Cocaine Screen,Urine Negative ng/ml (<300)
[2023-09-16 19:18] LABS: Methadone Screen,Urine Negative ng/ml (<300)
[2023-09-16 19:19] LABS: Opiate Screen,Urine Positive ng/ml (<300)
[2023-09-16 19:20] LABS: Phencyclidine Screen,Urine Negative ng/ml (<25)
== END 2023-09-16 23:59 ==
LOC: LAB.DROPOF 18:14
PROVIDERS: PCP Family Medicine; Visit Provider Family Medicine
DX: Z79.899 Other long term (current) drug therapy (principal)
CPT/HCPCS: 80307

== ENCOUNTER 2023-12-28 08:31 | Outpatient (CLI) | payer MEDICARE, OTHER, SELFPAY ==
--- NOTE | 2023-12-28 08:32 | CT_ITS ---
FINAL REPORT TECHNIQUE: Oral and IV contrast enhanced exam CLINICAL HISTORY: hx aneurysm/ genralized swelling COMPARISON: 05/30/2022 FINDINGS: Abdomen: No acute density is seen within the lung bases. A small hiatal hernia is present. The gallbladder has been surgically resected. There is mild biliary ductal dilatation, probably secondary to the prior cholecystectomy. The common hepatic duct measures 12 mm on today's examination, was previously 9 mm in 2021. There is a left renal mass, with a density exceeding that of a simple cyst, likely a complex cyst. This measures 21 mm in size, and is stable since the prior exam. Solid abdominal organs are otherwise unremarkable. There is a large duodenal diverticulum present. No bowel obstruction is present. There is no free air. No fluid collection is seen. No evidence of an abdominal aortic aneurysm is present. There is no adenopathy. Pelvis: There is moderate sigmoid diverticulosis present in the pelvis, without evidence of acute inflammatory change. There is streak artifact from a right hip replacement that obscures the right side of the pelvis. No evidence of appendicitis is seen. No iliac artery aneurysms are identified. No bowel wall thickening is present. There is no free fluid. No pelvic mass is seen. IMPRESSION: Left renal mass whose density exceeds that of a simple cyst, likely a complex cyst as described, stable in appearance since the prior CT of 2021. No acute findings are identified. Reviewed, Interpreted and Dictated by Abad Martin MD Transcribed by Tuyet Galvez Authenticated and [facility]
[2023-12-28 09:28] LABS: Blood Urea Nitrogen 12 mg/dl (7-17); Estimated Glomerular Filt Rate 81 ml/min (>60); GFR (African American) 98 ML/MIN (>60)
[2023-12-28] MEDS: SODIUM CHLORIDE 0.9% 10ML SYR (RAD ONLY) 10 ML IV (10:15)
[2023-12-28] MEDS: IOPAMIDOL-370 (76%);100ML BOTTLE 75 ML IV (10:15)
== END 2023-12-28 23:59 | disposition home or self-care (01) ==
LOC: RAD 08:32
PROVIDERS: PCP Family Medicine; Visit Provider Family Medicine
DX: R10.9 Unspecified abdominal pain (principal)
CPT/HCPCS: 36415; 74177; 82565; 84520; Q9967

== ENCOUNTER 2024-12-08 12:00 | Outpatient (CLI) | payer MEDICARE, SELFPAY ==
[2024-12-08 18:19] LABS: Basophils # 0.1 K/mm3 (0-0.2); Basophils % 0.6 % (0.1-2.0); Eosinophils # 0.2 K/mm3 (0.0-0.4); Eosinophils % 2.6 % (0.1-12.0); Hematocrit 27.1 % (37.0-47.0); Hemoglobin 7.4 g/dL (12.2-16.2); Lymphocytes # 1.3 K/mm3 (0.7-4.5); Mean Corpuscular HGB Conc 27.3 g/dL (31.8-35.4); Mean Corpuscular Hemoglobin 19.9 pg (27.0-31.2); Mean Platelet Volume 9.7 fl (7.4-10.4); Monocytes # 0.7 K/mm3 (0.1-1.0); Monocytes % 8.5 % (1.7-9.3); Neutrophils # 5.9 K/mm3 (1.8-7.8); Neutrophils % 71.9 % (37.0-80.0); Nucleated Red Blood Cells # 0 10^3/uL; Nucleated Red Blood Cells % 0 %; Platelet Count 375 K/mm3 (142-424); Red Blood Count 3.71 M/mm3 (4.20-5.40); Red Cell Distribution Width 19.1 % (11.5-17.5); Red Cell Distribution Width-SD 50.2 fL; White Blood Count 8.1 K/mm3 (4.8-10.8)
[2024-12-08 19:19] LABS: Albumin Level 3.7 g/dl (3.5-5.0); Chloride 101 mmol/L (98-107); Sodium 135 mmol/L (136-145)
[2024-12-08 19:22] LABS: Alanine Aminotransferase 13 U/L (12-78); Albumin/Globulin Ratio 1.3 (1.1-1.8); Alkaline Phosphatase 111 U/L (38-126); Aspartate Amino Transferase 22 U/L (14-36); Bilirubin,Total 0.3 mg/dl (0.2-1.3); Blood Urea Nitrogen 10 mg/dl (7-17); Carbon Dioxide 27 mmol/L (22.0-30.0); Cholesterol 77 mg/dl (140-200); Estimated Glomerular Filt Rate 69 ml/min (>60); GFR (African American) 84 ML/MIN (>60); Globulin 2.9 g/dL (1.3-3.2); Iron 25 ug/dL (37-170); Total Protein,Serum 6.6 g/dl (6.3-8.2); Triglycerides 103 mg/dl (30-150); VLDL Cholesterol 21 mg/dL (0-40)
[2024-12-08 19:23] LABS: Calcium 9.4 mg/dl (8.4-10.2); Glucose 123 mg/dl (74-100); HDL Cholesterol 39 mg/dl (40-60)
[2024-12-08 19:32] LABS: Total Iron Binding Capacity 434 ug/dL (265-497)
[2024-12-08 19:42] LABS: T4 (Thyroxine) 7.7 ug/dl (5.53-11.0)
[2024-12-08 19:46] LABS: Direct LDL Cholesterol < 30.00 mg/dL (100-129)
[2024-12-08 19:55] LABS: Thyroid Stimulating Hormone 1.65 uIU/mL (0.465-4.68)
== END 2024-12-08 23:59 | disposition home or self-care (01) ==
LOC: LAB.DROPOF 12-09 10:04
PROVIDERS: PCP Family Medicine; Visit Provider Family Medicine
DX: M54.50 Low back pain, unspecified (principal); R10.9 Unspecified abdominal pain
CPT/HCPCS: 80053; 80061; 83540; 83550; 84436; 84443; 85025

== ENCOUNTER 2025-01-05 10:22 | Outpatient (CLI) | payer MEDICARE, SELFPAY ==
[2025-01-05 18:48] LABS: Basophils # 0.1 K/mm3 (0-0.2); Basophils % 0.9 % (0.1-2.0); Eosinophils # 0.2 Kmm3 (0.0-0.4); Eosinophils % 2.1 % (0.1-12.0); Hematocrit 31.9 % (37.0-47.0); Hemoglobin 8.5 g/dL (12.2-16.2); Immature Granulocytes # 0.03 10^3uL; Immature Granulocytes % 0.3 %; Lymphocytes # 1.7 K/mm3 (0.7-4.5); Lymphocytes % 18.6 % (10-50); Mean Corpuscular HGB Conc 26.6 g/dL (31.8-35.4); Mean Corpuscular Hemoglobin 20.6 pg (27.0-31.2); Mean Corpuscular Volume 77.2 fl (81-99); Mean Platelet Volume 9.6 fl (7.4-10.4); Monocytes # 0.9 K/mm3 (0.1-1.0); Monocytes % 9.4 % (1.7-9.3); Neutrophils # 6.4 K/mm3 (1.8-7.8); Neutrophils % 68.7 % (37.0-80.0); Nucleated Red Blood Cells # 0 10^3/uL; Nucleated Red Blood Cells % 0 %; Platelet Count 479 K/mm3 (142-424); Red Blood Count 4.13 M/mm3 (4.20-5.40); Red Cell Distribution Width 23.1 % (11.5-17.5); White Blood Count 9.4 K/mm3 (4.8-10.8)
[2025-01-05 19:18] LABS: Iron 17 ug/dL (37-170)
[2025-01-05 19:28] LABS: Total Iron Binding Capacity 432 ug/dL (265-497)
[2025-01-05 19:58] LABS: Ferritin 21.3 ng/ml (11.1-264)
[2025-01-05 20:08] LABS: HIV Combo NEGATIVE (Negative)
[2025-01-05 20:10] LABS: Hepatitis C Ab Qual. W/ RFX NEGATIVE (Negative)
--- OUTSIDE RECORDS SUMMARY | 2025-01-06 12:51 | XMS_ITS | Data Portability ---
Author Organization [facility] Address [facility] [place] [address] Assessment No assessment recorded. Plan of Treatment Reminders Order Date Submit Date Provider Last Modified By Organization Details Last Modified Time Details Appointments INJ ONLY 15 2024 10:30A James CLAY NP Not available Not available Not available Lab None recorded. Referral None recorded. Procedures None recorded. Surgeries None recorded. Imaging XR, knee [address], [address] [place] [address] [place], [address], 09/08/2024 14:50:17 XR, lumbar spine [address], [address] [place] [address] [place], [address], 09/08/2024 14:50:17 XR, pelvis [address], [address] [place] [address] [place], [address], 09/08/2024 14:50:17 XR, hip, unilatera l [address], [address] [place] [address] [place], [address], 08/08/2024 15:46:08 Medication Orders Kenalog 10 mg/mL suspensio n for injection 03/06/ 2025 03/06/2 025 Not available 11/03/2024 13:21:31 bupivacai ne HCl 0.5 % (5 mg/mL) injection solution 2024 025 Not available 11/03/2024 13:21:31 Medrol (Nehemiah) 4 mg tablets in a dose pack 2024 025 [facility] [id number], [address] [facility] , [place], [address], 11/04/2024 09:26:05 Kenalog 10 mg/mL suspensio n for injection [address] [id number], [address] [facility] , [place], [address], 09/08/2024 14:50:17 bupivacai ne HCl 0.5 % (5 mg/mL) injection solution [address] [facility] [id number], [address] [facility] , [place], [address], 09/08/2024 14:50:17 Medrol (Nehemiah) 4 mg tablets in a dose pack [address] [facility] [id number], [address] [facility] , [place], [address], 09/08/2024 14:50:17 hydrocodo ne 5 mg-acetam inophen 325 mg tablet 2023 024 [facility] [id number], [address] [facility] , [place], [address], 07/11/2024 14:36:51 oxycodone -acetamin ophen 5 mg-325 mg tablet 2023 024 [facility] [id number], [address] [facility] , [place], [address], 07/07/2024 14:37:55 Patient TargetsNo targets recorded. Patient InstructionsNo instructions recorded. Reason for Referral None Reported. Results Created Date Observation Date Name Description Value Unit Range Abnormal Flag Note LastModifiedBy Organization Detail LastModifiedTime 06/27/2006/27/2024 GLUCO SE POINT OF CARE note See Note Order ing Provi mary: Erica Sommer MD Not Available [address] , [place], [address], 06/27/2024 07:40:15 06/27/20 24 06/27/2024 GLUCO SE POINT OF CARE glucose point of care 108 mg/dL 70-99 high Not Available [address] , [place], [address], 06/27/2024 07:40:15 06/27/20 24 06/27/2024 GLUCO SE POINT OF CARE performing lab see note [id number] [place] [address] Not Available [address] , [place], [address], 06/27/2024 07:40:15 07/07/20 24 07/07/2024 US, duple x, venou s, lower extre mity, compl ete [facility] Medica l Ce Name: SEKOU WALKER [address] [place] [address] Drive Phys: Ros SANDERS,Car [place] [address] : 1945 Age: 78 Sex: F Acct: [id number] Loc: G.US PHONE #: [phone] Exam Date: 2023 Status : REG CLI FAX #: Rad# [id number] Unit# [id number] Admit Date: 2023 EXAMS: CPT CODE: [id number] DUPLEX VENOUS LOW BILAT 74508 HISTOR Y: Recent left total hip arthro plasty . Bilate ral lower extrem ity swelli ng. COMPAR TIEN: NONE FINDIN GS: Ultras ound examin ation of both lower extrem ities was perfor med. Marshall-s saritha imagin g, color flow dopple r and spectr al analys is was perfor med. There is normal respir atory variat ion, flow augmen tation ,, and normal compre ssibil ity of the bilate ral common femora l, superf icial femora l, and poplit eal veins. Patien t unable to perfor m Valsal va maneuv er The deep veins of the calves and greate r saphen ous veins are freely compre ssible . IMPRES KINGSLEY: 1. No eviden ce of DVT in either lower extrem ity. COMMUN ICATIO N: Per this writte n report This report is genera gali using voice recogn ition comput er softwa re. Inadve rtent errors may have occurr ed while dictat ing report . Common sense approa ch is apprec iated and do not hesita te to call for clarif icatio n when necess adele. Electr onical ly Signed by Malathi Grayson on 2023 at 1551 Report ed and signed by: ROEL Grayson M.D. CC: Jamil Villeda MD; Coleman Sommer MD Dictat ed Date/T steven: 2023 (1551) Techno logist : MARTI FERGUSON RSanjeev Transc ribed Date/T steven: 2023 (1551) Transc riptio nist: DR.HAR ALFONSO Electr onic Signat ure Date/T steven: 2023 (1551) Printe d Date/T steven: 2023 (1555) BATCH NO: N/A PAGE 1 Signed Report CC'ed Logic: Orderi ng Provid er: ROS NAYAK Attend ing Provid er: ROS NAYAK Referr ing Provid er: ROS NAYAK Consul ting Provid er: ONUR witt [address] , [place], [address], 07/07/2024 16:06:56 08/08/20 24 XR, hip, unila teral No observ ation record ed. [email or web address] [address] , [place], [address], 08/08/2024 13:12:24 09/08/19 25 XR, pelvi s No observ ation record ed. BARBARA Barrios [address] [place], [address], 09/08/2024 13:46:09 09/08/19 25 XR, lumba r spine No observ ation record ed. BARBARA [address] , [place], [address], 09/08/2024 13:46:27 09/08/19 25 XR, knee No observ ation record ed. BARBARA Barrios [address] , [place], [address], 09/08/2024 13:48:30 Result Notes None recorded. Problems Name Problem SNOMED Code Status Onset Date Resolution Date Notes Provider Name and Address Organization Details Recorded Time Osteoarthri tis of left hip joint 1792421276464 08 Active 2023 Coleman Sommer MD [address] [place] [address],[address], [place], [address], [facility] & [place] 4 10:52:08 Renal mass 150931554 Active 2023 Coleman Sommer MD [address] [facility],[address], [place], [address], [facility] & [place] 4 10:52:15 Problem Notes None recorded. Procedures Surgical History None recorded. Imaging Results Imaging Date Name Status LastModified by Organ atcritical access hospital Details LastModified Time 07/07/2024 US, duplex, venous, lower extremity, complete completed [address] [place], [address], 07/07/2024 16:06:56 08/08/2024 XR, hip, unilateral completed [email or web address] Barrios [facility] [address] [place], [address], 08/08/2024 13:12:24 09/08/2024 XR, pelvis completed BARBARA [address] [place], [address], 09/08/2024 13:46:09 09/08/2024 XR, lumbar spine completed BARBARA [address] [place], [address], 09/08/2024 13:46:27 09/08/2024 XR, knee completed BARBARA [address] [place], [address], 09/08/2024 13:48:30 Procedure Notes None recorded. Medical Equipment None Reported. Allergies No known drug allergies Medications Name Sig Start Date Stop Date Status Note LastModified by Organization Details LastModified Time celecoxib 200 mg capsule active Not Available Not Available Not Available cyclobenzap rine 10 mg tablet active Not Available Not Available Not Available furosemide 40 mg tablet active Not Available Not Available Not Available atorvastati n 40 mg tablet active Not Available Not Available Not Available prednisone 10 mg tablet active Not Available Not Available Not Available doxycycline hyclate 100 mg capsule TAKE 1 CAPSULE BY MOUTH EVERY 12 HOURS active Not Available Not Available No t Available cefuroxime axetil 250 mg tablet 09/01 completed Not Available Not Available Not Available clindamycin HCl 300 mg capsule TAKE 1 CAPSULE BY MOUTH EVERY 6 HOURS FOR 10 DAYS 09/01 completed Not Available Not Available Not Available albuterol sulfate 2.5 mg/3 mL (0.083 %) solution for nebulizatio n USE 1 VIAL IN NEBULIZER EVERY 8 HOURS NEEDED active Not Available Not Available No t Available diltiazem ER (XR/XT) 240 mg capsule,ext ended release 24 hr, controlled active Not Available Not Available N ot Available azithromyci n 250 mg tablet active Not Available Not Available Not Available hydrocodone 5 mg-acetamin ophen 325 mg tablet Take 1 tablet every 6 hours by oral route as needed. active Not Available Not Available No t Available diltiazem CD 240 mg capsule,ext ended release 24 hr active Not Available Not Available Not Available bupivacaine HCl 0.5 % (5 mg/mL) injection solution Take 10 mg by injection route. 2024 active Not Available Not Available Not Avai lable prednisone 20 mg tablet TAKE 2 TABLETS BY MOUTH ONCE DAILY FOR 5 DAYS active Not Available Not Available No t Available gabapentin 400 mg capsule active Not Available Not Available Not Available diltiazem ER 240 mg capsule,24 hr,extended release active Not Available Not Available Not Available clopidogrel 75 mg tablet active Not Available Not Available Not Available sulfamethox azole 800 mg-trimetho prim 160 mg tablet 09/01 completed Not Available Not Available Not Available hydrocodone 10 mg-acetamin ophen 325 mg tablet active Not Available Not Available No t Available cefadroxil 500 mg capsule active Not Available Not Available Not Available oxycodone-a cetaminophe n 5 mg-325 mg tablet Take 1 tablet every 6 hours by oral route as needed. active Not Available Not Available No t Available diltiazem 120 mg tablet 09/01 completed Not Available Not Available Not Available trazodone 100 mg tablet active Not Available Not Available Not Available Kenalog 10 mg/mL suspension for injection Take 20 mg by injection route. 2024 active Not Available Not Available Not Avai lable hydrocodone 7.5 mg-acetamin ophen 325 mg tablet active Not Available Not Available No t Available cephalexin 500 mg capsule 09/01 completed Not Available Not Available Not Available buspirone 10 mg tablet active Not Available Not Available Not Available promethazin e 25 mg tablet active Not Available Not Available Not Available nitroglycer in 0.4 mg sublingual tablet active Not Available Not Available Not Available gabapentin 300 mg capsule active Not Available Not Available Not Available omeprazole 20 mg capsule,del ayed release TAKE 1 CAPSULE BY MOUTH ONCE DAILY active Not Available Not Available No t Available diltiazem CD 120 mg capsule,ext ended release 24 hr TAKE 1 CAPSULE BY MOUTH ONCE DAILY AT BEDTIME active Not Available Not Available No t Available mupirocin 2 % topical ointment active Not Available Not Available Not Available digoxin 125 mcg (0.125 mg) tablet active Not Available Not Available N ot Available furosemide 20 mg tablet active Not Available Not Available Not Available gabapentin 100 mg capsule active Not Available Not Available Not Available metoprolol succinate ER 25 mg tablet,exte nded release 24 hr active Not Available Not Available Not Available levofloxaci n 500 mg tablet active Not Available Not Available Not Available methylpredn isolone 4 mg tablets in a dose pack Take 1 dose pk by oral route. active Not Available Not Available No t Available ondansetron 4 mg disintegrat ing tablet active Not Available Not Available N ot Available fluticasone propionate 50 mcg/actuati on nasal spray,suspe nsion active Not Available Not Available Not Available doxycycline hyclate 100 mg tablet TAKE 1 TABLET BY MOUTH TWICE DAILY FOR 7 DAYS 09/01 completed Not Available Not Available Not Available metoclopram juan 10 mg tablet active Not Available Not Available Not Available azithromyci n 500 mg tablet active Not Available Not Available Not Available bupivacaine (PF) 0.5 % (5 mg/mL) injection solution Take 2 mL by injection route. 08/08 completed Not Available Not Available Not Available nitrofurant oin monohydrate /macrocryst als 100 mg capsule active Not Available Not Available Not Available levocetiriz ine 5 mg tablet active Not Available Not Available Not Available Combivent Respimat 20 mcg-100 mcg/actuati on solution for inhalation active Not Available Not Available N ot Available Vitals None Recorded Social History None recorded. Functional Status None recorded. Mental Status None recorded. Family History Nothing Reported. Medical History Condition Response Other Y Gynecological HistoryNo gynecological history recorded. Obstetrics History GPAL:G 0 P 0 0 0 0 Immunizations Vaccine Type Date Status Note Provider Nam e and Address Organization Details Recorded Time Influenza, high-dose, quadrivalent, PF 2 completed CAMPBELL Thomas - [place] & [place] 09/01/2023 10:43:13 COVID-19, mRNA, LNP-S, PF, 100 mcg/0.5mL dose or 50 mcg/0.25mL dose 1 completed CAMPBELL Thomas - [place] & [place] 09/01/2023 10:43:13 COVID-19, mRNA, LNP-S, PF, 100 mcg/0.5mL dose or 50 mcg/0.25mL dose 1 completed Ade Keaton null, [place] - [facility] - [place] & [place] 09/01/2023 10:43:13 pneumococcal polysaccharide PPV23 7 completed Ade Keaton null, [place] - [facility] - [place] & [place] 09/01/2023 10:43:13 Influenza, high-dose, trivalent, PF 7 completed Ade Keaton null, [place] - [facility] - [place] & [place] 09/01/2023 10:43:13 Influenza, split virus, trivalent, PF 0 completed Ade Keaton null, [place] - [facility] - [place] & [place] 09/01/2023 10:43:13 influenza, split (incl. purified surface antigen) 2 completed Ade Keaton null, [place] - [facility] - [place] & [place] 09/01/2023 10:43:13 Influenza, split virus, quadrivalent, PF 6 completed Ade Keaton null, [place] - [facility] [place] & [place] 09/01/2023 10:43:13 Influenza, high-dose, trivalent, PF 4 completed Ade Keaton null, [place] - [facility] & [place] 07/07/2024 13:50:36 Past Encounters Encounter ID Performer Location Encounter Start Date Encounter Closed Date Diagnosis/Indication Diagnosis SNOMED-CT Code Diagnosis ICD10 Code Diagnosis Note [id number] MD MONICA Greco [address] [address] 08/18/2023 08:36:02 08/18/2023 09:20:24 History of total replacement of right hip joint 9679315552 35919 Z96.641 [id number] MD MONICA Greco [address] [address] 09/01/2023 10:30:34 09/01/2023 10:58:32 Low back pain 158387525 M54.50 Lumbar radiculitis 70958 79354 3426186 M54.16 [id number] Coleman Sommer MD [facility] [address] [place] [address] 9 09/29/2023 13:36:47 09/29/2023 14:28:04 Right side sciatica 2597453722 37557 M54.31 Pain of hip region 84446 002 M25.963 [id number] Coleman Sommer MD [facility] [address] [place] [address] 9 12/22/2023 13:13:09 12/22/2023 14:04:49 Trochanteric bursitis of left hip 0592998925 49420 M70.62 [id number] Coleman Sommer MD [facility] [address] [place] [address] 9 02/04/2024 09:54:19 02/04/2024 10:50:13 Pain of left hip joint 5896684498 16270 M25.552 Osteoarthr itis of left hip joint 4577813003 11542 M16.12 Renal mass 584140869 N28 .89 [id number] Coleman Sommer MD [facility] [address] [place] [address] 9 03/30/2024 15:38:02 03/30/2024 16:44:27 Pain of left hip joint 9769555395 49477 M25.552 Osteoarthr itis of left hip joint 0365051652 67847 M16.12 Renal mass 252437810 N28 .89 History of total replacement of right hip joint 1949052770 14263 Z96.040 [id number] Coleman Sommer MD [facility] [address] [place] [address] 9 07/07/2024 13:26:56 07/07/2024 14:20:41 History of total replacement of left hip joint 6588391002 902011 Z96.982 [id number] Coleman Sommer MD [facility] [address] [place] [address] 9 07/11/2024 12:45:30 07/11/2024 13:47:45 History of total replacement of left hip joint 9214871600 809224 Z96.706 [id number] Coleman Sommer MD [facility] [address] [place] [address] 9 08/08/2024 12:57:52 08/08/2024 13:32:10 History of total replacement of left hip joint 1170594349 183614 Z96.894 [id number] BOBBY CLAY NP [facility] [address] [place] [address] 9 09/08/2024 13:03:41 09/08/2024 14:36:03 Pain of bilateral hip joints 7670219361 4183569 M25.551 M25.552 Lumbar radiculitis 64621 13011 1525418 M54.16 Bilateral osteoarthritis of knees 9703127594 09926 M17.0 Pain in ri ght sacroiliac joint 7911928239 4685742 M53.3 Right side sciatica 3202 902499 77359 M54.31 [id number] BOBBY CLAY NP [facility] [place] [address] 9 11/03/2024 10:17:57 11/03/2024 11:19:06 Arthritis of left sacroiliac joint 9191147632 577170 M13.88 Health Concerns Section Related Observation LastModified by Organization Detai ls LastModified Time None Recorded Concern Status LastModified by Organization Details LastModified Time None Recorded Advance Directives Directive None Recorded Payers Insurance Date Sequence Insurance Name Policy Number Policy Begum Covered Member ID Begum Member ID Guarantor Name 09/08/2024 2 *SELF PAY* Charles Walker 09/08/2024 2 [employer] CLAIM[employer] Sekou Walker [id number] Sekou Walker 12/28/2024 2 [employer] Sekou Walker [id number] Sekou Walker 11/01/2024 1 [place] [id number] Sekou Walker [id number] Sekou Aaron 03/30/2024 2 ZACK (MEDICARE SUPPLEMENT) Sekou Walker [id number] Sekou Aaron Notes Date Note Type Note Provider Name and Address Organization Details Recorded Time 07/07/2024 text/html Pt is here for increased pain of her left hip after her left CHLOE. Her DOS- 06/27/2024. She also has significant swelling of her lisbeth ankles. She was taking lortab since 2001 for her back. I did not repeat Xrays- E4SF Coleman Sommer MD [address] [place] [address],[address], [place], [address], [facility] [place] & [place] 07/07/2024 14:37:57 07/11/2024 text/html Pt is here for 2 week post op DOS 10.28.24. She came in last for increased hip pain. We ordered a US that was neg. She reports her hip is some better. E2SF BOBBY CLAY NP [address] [facility] [address], [place], [address], [facility] - [facility] - [place] & [place] 07/13/2024 10:32:19 08/08/2024 text/html Patient is here today for 6 week postop Left posterior total hip arthroplasty. States that she still has some pain but overall is doing better. E3 JS BOBBY CLAY NP [address] [place] [address] Drive,[address], [place], [address], [facility] - [facility] - [place] & [place] 08/08/2024 13:34:33 09/08/2024 text/html 78 year old fema le here today for bilateral hip pain, pain radiating down legs into bilateral knees, sudden onset 3 days ago-- no injury. She states percocet is ineffective, too soon to refill lortab, tylenol, ibuprofen, aleve and icy hot all ineffective as well. x-rays of AP pelvis, lateral lumbar and bilateral knees taken in office today. Coleman Sommer MD [address] [place] [address] Drive,[address], [place], [address], [facility] & [place] 09/09/2024 07:30:48 11/03/2024 text/html This is a 78 y/o female here today for left hip/leg pain. Patient states when she lifts her leg up it causes pain in the left groin and lateral aspect. At times she has pain in both legs. States she is unable to have MRI of back. Takes Lortab for back. Patient was referred to pain mgmt in [place] last month but was told they are unable to see her. Patient would like to be referred to [facility] so her daughter can take her to apt. Patient states the right SI joint injection given on 09.08.24 helped. E6AP DOS 06.27.24 Left posterior total hip arthroplastyAP Pelvis, lateral lumbar spine and 5v bilateral knee x-ray in office 09/08/24 BOBBY CLAY, [employer] SERVICE SUPERVISOR [address] [facility],[address], [place], [address], [facility] & [place] 11/04/2024 09:26:29 OBGyn Episode No OBEpisode recorded.
== END 2025-01-05 23:59 | disposition home or self-care (01) ==
LOC: LAB.DROPOF 01-06 12:50
PROVIDERS: PCP Family Medicine; Visit Provider Family Medicine
DX: D64.9 Anemia, unspecified (principal); J44.9 Chronic obstructive pulmonary disease, unspecified; Z11.59 Encounter for screening for other viral diseases
CPT/HCPCS: 82728; 83540; 83550; 85025; 86803; 87389

== ENCOUNTER 2025-02-02 10:15 | Outpatient (CLI) | payer MEDICARE, SELFPAY ==
[2025-02-02 18:44] LABS: Basophils # 0.1 K/mm3 (0-0.2); Basophils % 0.8 % (0.1-2.0); Eosinophils % 0.1 % (0.1-12.0); Hematocrit 42.4 % (37.0-47.0); Hemoglobin 12.1 g/dL (12.2-16.2); Immature Granulocytes # 0.01 10^3uL; Immature Granulocytes % 0.1 %; Lymphocytes # 0.8 K/mm3 (0.7-4.5); Lymphocytes % 11.8 % (10-50); Mean Corpuscular HGB Conc 28.5 g/dL (31.8-35.4); Mean Corpuscular Hemoglobin 23.9 pg (27.0-31.2); Mean Corpuscular Volume 83.8 fl (81-99); Mean Platelet Volume 9.8 fl (7.4-10.4); Monocytes # 0.4 K/mm3 (0.1-1.0); Monocytes % 5.4 % (1.7-9.3); Neutrophils # 5.8 K/mm3 (1.8-7.8); Neutrophils % 81.8 % (37.0-80.0); Nucleated Red Blood Cells # 0 10^3/uL; Nucleated Red Blood Cells % 0 %; Platelet Count 274 K/mm3 (142-424); Red Blood Count 5.06 M/mm3 (4.20-5.40); Red Cell Distribution Width-SD 79.9 fL; White Blood Count 7.1 K/mm3 (4.8-10.8)
[2025-02-02 18:50] LABS: Red Cell Distribution Width 26.7 % (11.5-17.5)
[2025-02-02 19:59] LABS: Iron 71 ug/dL (37-170)
[2025-02-02 20:14] LABS: Total Iron Binding Capacity 416 ug/dL (265-497)
--- OUTSIDE RECORDS SUMMARY | 2025-02-03 14:03 | XMS_ITS | Data Portability ---
Author Organization [facility] and [facility] Address [address] [place] [address] Assessment No assessment recorded. Plan of Treatment Reminders Order Date Submit Date Provider Last Modified By Organization Details Last Modified Time Details Appointments None recorded. Lab None recorded. Referral None recorded. Procedures None recorded. Surgeries None recorded. Imaging XR, knee 2024 025 apocathy [facility], [address] [place] [address] [place], [address], 5 14:50:17 XR, lumbar spine 2024 025 thomas [facility], [address] [place] [address] [place], [address], 5 14:50:17 XR, pelvis 2024 025 thomas [facility], [address] [place] [address] [place], [address], 5 14:50:17 XR, hip, unilateral 2023 024 thomas [facility], [address] [place] [address] [place], [address], 4 15:46:08 Medication Orders Kenalog 10 mg/mL suspension for injection 2024 025 [email or web address] Not available 5 13:21:31 bupivacaine HCl 0.5 % (5 mg/mL) injection solution 2024 025 [email or web address] Not available 5 13:21:31 Medrol (Nehemiah) 4 mg tablets in a dose pack 2024 025 [facility] [id number], [address] [facility] , [place], [address], 5 09:26:05 Kenalog 10 mg/mL suspension for injection [address] [id number], [address] [facility] , [place], [address], 5 14:50:17 bupivacaine HCl 0.5 % (5 mg/mL) injection solution [address] [id number], [address] [place] [address] , [place], [address], 5 14:50:17 Medrol (Nehemiah) 4 mg tablets in a dose pack [address] [id number], [address] [place] [address] , [place], [address], 5 14:50:17 hydrocodone 5 mg-acetamin ophen 325 mg tablet 2023 024 [facility] [id number], [address] [place] [address] , [place], [address], 4 14:36:51 oxycodone-a cetaminophe n 5 mg-325 mg tablet 2023 024 [facility] [id number], [address] [place] [address] [place], [address], 4 14:37:55 Patient TargetsNo targets recorded. Patient InstructionsNo instructions recorded. Reason for Referral None Reported. Results Created Date Observation Date Name Description Value Unit Range Abnormal Flag Note LastModifiedBy Organization Detail LastModifiedTime 06/27/2006/27/2024 GLUCO SE POINT OF CARE note See Note Order ing Provi mary: Erica Sommer MD Not Available [address] , [place], [address], 06/27/2024 07:40:15 06/27/20 24 06/27/2024 GLUCO SE POINT OF CARE glucose point of care 108 mg/dL 70-99 high Not Available [address] , [place], [address], 06/27/2024 07:40:15 06/27/2006/27/2024 GLUCO SE POINT OF CARE performing lab see note [facility] - [address] [place] [address] Not Available [address] , [place], [address], 06/27/2024 07:40:15 07/07/2007/07/2024 US, duple x, venou s, lower extre mity, compl ete [facility] Name: SEKOU WALKER [address] [place] [address] [place] Phys: Ros SANDERS,[place] [address] : 1945 Age: 78 Sex: F Acct: [id number] Loc: G.US PHONE #: Exam Date: 2023 Status : REG CLI FAX #: Rad# [id number] Unit# [id number] Admit Date: 2023 EXAMS: CPT CODE: [id number] DUPLEX VENOUS LOW BILAT 69181 HISTOR Y: Recent left total hip arthro [...] 2023 (1551) Techno logist : MARTI FERGUSON RLesviaTLesvia Transc ribed Date/T steven: 2023 (1551) Transc riptio nist: DR.HAR ALFONSO Electr onic Signat ure Date/T steven: 2023 (1551) Printe d Date/T steven: 2023 (1555) BATCH NO: N/A PAGE 1 Signed Report CC'ed Logic: Orderi ng Provid er: ROS NAYAK Attend ing Provid er: ROS NAYAK Referr ing Provid er: ROS NAYAK Consul ting Provid er: ONUR witt [address] , [place], [address], 07/07/2024 16:06:56 08/08/20 24 XR, hip, unila teral No observ ation record ed. [email or web address] Soriano [address] [place], [address], 08/08/2024 13:12:24 09/08/19 25 XR, pelvi s No observ ation record ed. BARBARA Barrios [facility] [address] [place], [address], 09/08/2024 13:46:09 09/08/19 25 XR, lumba r spine No observ ation record ed. BARBARA [facility] [address] [place], [address], 09/08/2024 13:46:27 09/08/19 25 XR, knee No observ ation record ed. BARBARA Barrios [address] [place], [address], 09/08/2024 13:48:30 01/18/20 25 11/30/2024 arter ial segme ntal press ure, lower extre mity No observ ation record ed. [email or web address] Not Available 2024 14:20:02 Result Notes None recorded. Problems Name Problem SNOMED Code Status Onset Date Resolution Date Notes Provider Name and Address Organization Details Recorded Time Osteoarthri tis of left hip joint 9877070388735 08 Active 2023 Coleman Sommer MD [address] [place] [address],[address], [place], [address], [facility] [place] 4 10:52:08 Renal mass 514092294 Active 2023 Coleman Sommer MD [address] [place] [address],[address], [place], [address], [facility] & [place] 4 10:52:15 Problem Notes None recorded. Medical Equipment None Reported. [...] active Not Available Not Available Not Available fluticasone 250 mcg-salmete rol 50 mcg/dose blistr powdr for inhalation INHALE ONE (1) PUFF BY MOUTH TWICE DAILY active Not Available Not Available No t Available prednisone 10 mg tablet active Not [...] Not Available Not Available No t Available albuterol sulfate HFA 90 mcg/actuati on aerosol inhaler INHALE TWO (2) PUFFS BY MOUTH FOUR (4) TIMES DAILY NEEDED FOR SHORTNESS OF BREATH OR WHEEZING active Not Available Not Available No t [...] Time Influenza, high-dose, quadrivalent, PF 2 completed Ade Keaton null, [place] - [facility] & [place] 09/01/2023 10:43:13 COVID-19, mRNA, LNP-S, PF, 100 mcg/0.5mL dose or 50 mcg/0.25mL dose 1 completed Ade Keaton null, [place] - [facility] [place] [facility] [place] 09/01/2023 10:43:13 COVID-19, mRNA, LNP-S, PF, 100 mcg/0.5mL dose or 50 mcg/0.25mL dose 1 completed Ade Keaton null, [place] - [facility] & [place] 09/01/2023 10:43:13 pneumococcal polysaccharide PPV23 7 completed Ade Keaton null, [place] [facility] [place] [facility] [place] 09/01/2023 10:43:13 Influenza, high-dose, trivalent, PF 7 completed Ade Ke[place] null, [place] [facility] [place] [facility] [place] 09/01/2023 10:43:13 Influenza, split virus, trivalent, PF 0 completed Ade Keaton null, [place] [facility] [place] [facility] [place] 09/01/2023 10:43:13 influenza, split (incl. purified surface antigen) 2 completed Ade Keaton null, [place] [facility] [place] [facility] [place] 09/01/2023 10:43:13 Influenza, split virus, quadrivalent, PF 6 completed Ade holly, [place] - [facility] [place] & [place] 09/01/2023 10:43:13 Influenza, high-dose, trivalent, PF 4 completed Ade holly, [place] - [facility] [place] & [place] 07/07/2024 13:50:36 Past Encounters Encounter ID Performer Location Encounter Start Date Encounter Closed Date Diagnosis/Indication Diagnosis SNOMED-CT Code Diagnosis ICD10 Code Diagnosis Note [id number] Coleman Sommer MD [facility] [place] [address] 08/18/2023 08:36:02 08/18/2023 09:20:24 History of total replacement of right hip joint 5665631506 15450 Z96.641 [id number] Coleman Sommer MD [facility] [place] [address] 09/01/2023 10:30:34 09/01/2023 10:58:32 Low back pain 363575090 M54.50 Lumbar radiculitis 94259 08344 5648363 M54.16 [id number] [facility] [place] [address] 09/29/2023 13:36:47 09/29/2023 14:28:04 Right side sciatica 3614720092 24147 M54.31 Pain of hip region 41535 002 M25.755 [id number] Coleman Sommer MD [facility] [address] [address] 12/22/2023 13:13:09 12/22/2023 14:04:49 Trochanteric bursitis of left hip 3292750748 13754 M70.62 [id number] Coleman Sommer MD [facility] [address] [address] 02/04/2024 09:54:19 02/04/2024 10:50:13 Pain of left hip joint 8336558331 45377 M25.552 Osteoarthr itis of left hip joint 2053833148 28763 M16.12 Renal mass 672259763 N28 .89 [id number] Coleman Sommer MD [facility] [place] [address] 9 03/30/2024 15:38:02 03/30/2024 16:44:27 Pain of left hip joint 4169306115 87089 M25.552 Osteoarthr itis of left hip joint 2528004201 52629 M16.12 Renal mass 581207057 N28 .89 History of total replacement of right hip joint 5869562765 62307 Z96.625 [id number] Coleman Sommer MD [facility] [place] [address] 9 07/07/2024 13:26:56 07/07/2024 14:20:41 History of total replacement of left hip joint 9775895476 397084 Z96.580 [id number] Coleman Sommer [facility] [address] [place] [address] 9 07/11/2024 12:45:30 07/11/2024 13:47:45 History of total replacement of left hip joint 9003124993 398632 Z96.393 [id number] Coleman Sommer MD [facility] [place] [address] 9 08/08/2024 12:57:52 08/08/2024 13:32:10 History of total replacement of left hip joint 0206458815 516499 Z96.359 [id number] BOBBY CLAY NP [facility] [address] [place] [address] 9 09/08/2024 13:03:41 09/08/2024 14:36:03 Pain of bilateral hip joints 9168499330 3553401 M25.551 M25.552 Lumbar radiculitis 90747 32557 4636527 M54.16 Bilateral osteoarthritis of knees 0895121155 92419 M17.0 Pain in ri ght sacroiliac joint 3774311716 6954478 M53.3 Right side sciatica 3202 837475 01593 M54.31 [id number] AARTI [facility] [address] [place] [address] 11/03/2024 10:17:57 11/03/2024 11:19:06 Arthritis of left sacroiliac joint 3149195585 717145 M13.88 Health Concerns Section Related Observation LastModified by Organization Detai ls LastModified Time None Recorded Concern Status LastModified by Organization Details LastModified Time None Recorded Advance Directives Directive None Recorded Payers Insurance Date Sequence Insurance Name Policy Number Policy Begum Covered Member ID Begum Member ID Guarantor Name 09/08/2024 2 *SELF PAY* Be barber Walker 09/08/2024 2 [employer] Sekou Walker [id number] Sekou Walker 01/30/2025 2 [employer] Sekou Walker [id number] Sekou Walker 01/30/2025 1 [place] [id number] Sekou Walker [id number] Sekou Walker 03/30/2024 2 [employer] (MEDICARE SUPPLEMENT) Sekou Walker [id number] Sekou Walker Notes Date Note Type Note Provider Name and Address Organization Details Recorded Time 07/07/2024 text/html Pt is here for increased pain of her left hip after her left CHLEO. Her DOS- 06/27/2024. She also has significant swelling of her lisbeth ankles. She was taking lortab since 2001 for her back. I did not repeat Xrays- [id number] Coleman Sommer MD [address] [facility],[address], [place], [address], [facility] [place] [facility] [place] 07/07/2024 14:37:57 07/11/2024 text/html Pt is here for 2 week post op DOS 24. She came in last for increased hip pain. We ordered a US that was neg. She reports her hip is some better. [email or web address] BOBBY CLAY, AARTI [address] [facility],[address], [place], [address], [facility] [place] 07/13/2024 10:32:19 08/08/2024 text/html Patient is here today for 6 week postop Left posterior total hip arthroplasty. States that she still has some pain but overall is doing better. E3 JS BOBBY CLAY, AARTI [address] [facility] [address], [place], [address], [facility] [place] 08/08/2024 13:34:33 09/08/2024 text/html 78 year old [...] taken in office today. Coleman Sommer MD [address] [place] [address],[address], [place], [address], [facility] [place] 09/09/2024 07:30:48 11/03/2024 text/html This is a 78 y/o female here today for left hip/leg pain. Patient states when she lifts her leg up it causes pain in the left groin and lateral aspect. At times she has pain in both legs. States she is unable to have MRI of back. Takes Lortab for back. Patient was referred to pain mgmt in [place] last month but was told they are unable to see her. Patient would like to be referred to [facility] in [facility] so her daughter can take her to [facility]. Patient states the right SI joint injection given on 09.08.24 helped. E6AP DOS 24 Left posterior total hip arthroplastyAP Pelvis, lateral lumbar spine and 5v bilateral knee x-ray in office 09/08/24 BOBBY CLAY NP [address] [facility],[address], [place], [address], [facility] [place] 11/04/2024 09:26:29 OBGyn Episode No OBEpisode recorded.
--- OUTSIDE RECORDS SUMMARY | 2025-02-03 14:03 | XMS_ITS | Clinical Summary ---
Author Organization [facility] [place] [address] Care Team Providers Care Loss Prevention Research Engineer Name Role Phone Unavailable Primary Care Provider Unavailabl e Social History Tobacco Use Types Packs/Day Years Used Date Smoking Tobacco: Never Assessed Comments Unknown Sex and Gender Information Value Date Recorded Sex Assigned at Not on file Legal Sex Female 10:55 AM EDT Gender Identity Not on file Sexual Orientation Not on file Plan of Treatment Health Maintenance Due Date Last Done Comments Osteoporosis Screening 1945 Breast Cancer Screening 12/20/1963 Hepatitis C Screening 12/20/1963 DTaP/Tdap/Td Vaccines (1 - Tdap) 1964 Diabetes Screening 1990 Pneumococcal Vaccines: 50+ Y ears (1 of 1 - PCV) 12/20/1995 Zoster Vaccines (1 of 2) 12/20/1995 COVID-19 Vaccines (1 - season) 2024 Influenza Vaccines 03/31/2025 HIB Vaccines Aged Out No longer eligi ble based on patient's age to complete this topic HISTORICAL VIEW: Colorectal Cancer Screening Discontinued HISTORICAL VIEW: MMR Vaccines Discontinued HISTORICAL VIEW: Varicella Vaccines Discontinued HPV Vaccines Aged Out No longer eligi ble based on patient's age to complete this topic Hepatitis A Vaccines Aged Out No long er eligible based on patient's age to complete this topic Hepatitis B Vaccines Aged Out No long er eligible based on patient's age to complete this topic IPV Vaccines Aged Out No longer eligi ble based on patient's age to complete this topic Meningococcal Vaccines Aged Out No lo nger eligible based on patient's age to complete this topic Rotavirus Vaccines Aged Out No longer eligible based on patient's age to complete this topic
--- OUTSIDE RECORDS SUMMARY | 2025-02-03 14:04 | XMS_ITS | Clinical Summary ---
Author Organization [facility] Address [address] [address] [address] [place] [address] Phone Care Team Providers Care Postdoctoral Scientist Name Role Phone Mary Marshall MD Primary Care Provider [phone] Allergies Active Allergy Reactions Criticality Noted Date Comments Morphine Nausea And Vomiting Medium 06/21/2019 Penicillins Hives High 05/25/2014 Medications digoxin (LANOXIN) 125 mcg Oral Tablet Take 1 mcg by mouth daily. Active nitroGLYCERIN (NITROSTAT) 0.4 mg SL Tablet, Sublingual Place 0.4 mg under the tongue every 5 minutes as needed for Chest pain. Active aspirin 81 mg Oral Tablet, Delayed Release (E.C.) Take 81 mg by mouth daily. Active cyclobenzaprine (FLEXERIL) 10 mg Oral Tablet Take 10 mg by mouth 3 times daily as needed. Active dilTIAZem (DILACOR XR) 240 mg Oral Capsule,Degradab le Cnt Release Take 240 mg by mouth daily. Takes in morning 9 Active HYDROcodone-acet aminophen (NORCO) 7.5-325 mg Oral TabletIndication s:pain 1 Tab 2 times daily. Indications: pain 0 Active pantoprazole (PROTONIX) 40 mg Oral Tablet, Delayed Release (E.C.) 40 mg daily. 8 Active sodium hypochlorite (DAKIN'S 1/4 STRENGTH) 0.125 % Misc Solution Apply 473 mL topically daily. Apply as directed 1 Bottle 3 0 Active Additional Information Patient not taking.Reason: Therapy Completed, Informant: Self/Patient, Reported on 11/29/2024 fUROsemide (LASIX) 20 mg Oral Tablet Take 20 mg by mouth daily as needed. 1 Active HYDROcodone-acet aminophen (NORCO) 5-325 mg Oral TabletIndication s:Strain of lumbar region, initial encounter Take one Tab by mouth every 6-8 hours as needed (PRN) 30 Tablet 4 Active Additional Information Patient not taking.Informant: Self/Patient, Reported on 11/29/2024 albuterol (PROVENTIL) 2.5 mg /3 mL (0.083 %) Inhl Solution for Nebulization Act reno clopidogreL (PLAVIX) 75 mg Oral Tablet Active ipratropium-albu terol (COMBIVENT RESPIMAT) 20-100 mcg/actuation Inhl Mist Active metoprolol succinate (TOPROL-XL) 25 mg Oral Tablet Sustained Release 24 hr 25 mg. 4 Active omeprazole (PRILOSEC) 20 mg Oral Capsule, Delayed Release(E.C.) 4 Active atorvastatin (LIPITOR) 40 mg Oral Tablet 4 Active gabapentin (NEURONTIN) 100 mg Oral Capsule 300 mg. 4 Active HYDROcodone-acet aminophen (NORCO) 10-325 mg Oral Tablet 4 Active Active Problems Patient Care Coordination No te Formatting of this note migh t be different from the original. 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 Agatston coronary artery calcium score greater t gimenez 400 02/23/2024 Arthritis of left hip 02/23/2024 Coronary atherosclerosis 02/23/2024 Dysphagia 02/23/2024 Erosive osteoarthritis of multiple sites 024 Esophageal dysmotility 02/23/2024 Exertional angina 02/23/2024 Gastroparesis 02/23/2024 History of permanent cardiac pacemaker placement 02/23/2024 HTN (hypertension) 02/23/2024 HLD (hyperlipidemia) 02/23/2024 Osteopenia 02/23/2024 Right atrial enlargement 02/23/2024 Status post cardiac catheterization 02/23/2024 Status post laparoscopic cholecystectomy 024 Atrial fibrillation 02/23/2024 PAD (peripheral artery disease) 02/23/2024 Smoking addiction 02/23/2024 Cigarette nicotine dependenc e with nicotine-induced disorder 02/23/2024 Renal mass 02/04/2024 Osteoarthritis of right hip 06/13/2020 COPD not affecting current episode of care 06/13 Pacemaker 06/13/2020 Symptomatic cholelithiasis 10/31/2019 Overview (10/31/2019): Added automatically from request for surgery [id number] 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 Tobacco use disorder 05/13/2016 Cardiac asystole 05/13/2016 SVT (supraventricular tachycardia) 05/13/2016 Resolved Problems Problem Noted Date Diagnosed Date Resolved Date Non-healing non-surgical wound 08/09/2020 09/13/2020 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 08/09/2020 09/13/2020 Deep dehiscence of operation wound 07/30/2020 09/13/2020 Encounters Date Type Department Care Team Description 11/29/2024 1:45 PM EDT Office Visit [facility] [address] [facility] [address] [place] [id number] Josh Patino MD PAD (peripheral artery disease) (Primary Dx); Smoking addiction; Cigarette nicotine dependence with nicotine-induced disorder from Last 3 Months Immunizations Immunization Administration Dates Next Due Influenza Patient Reported 05/31/2015 Pneumococcal Polysaccharide 23 Valent 05/31/2015 Surgical History Surgery Date Site/Laterality Comments PACEMAKER INSERTION 05/21/2016 APPENDECTOMY HYSTERECTOMY CARDIAC CATHETERIZATION COLONOSCOPY CARDIAC PACEMAKER PLACEMENT UPPER GASTROINTESTINAL ENDOSCOPY CHOLECYSTECTOMY, LAPAROSCOPIC 01/26/2020 N/A laparoscopic cholecystectomy ; Surgeon: Margot Pitts MD; Location: [facility]; Service: General EYE SURGERY Bilateral cataracts LASIK Left HIP ARTHROPLASTY 06/13/2020 Hip/Right RIGHT TOTAL HIP REPLACEMENT; Surgeon: Jacky Alvarado MD; Location: [facility]; Service: Orthopedics Medical devices from this surgery are in the Medical Devices section. 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) 08/09/2020 Non-healing non-surgical wound 08/09/2020 Deep dehiscence of operation wound 07/30/2020 Family History Medical History Relation Name Comments Hypertension Brother 1 Lung Cancer Brother 1 Diabetes Brother 2 Hypertension Brother 2 Emphysema Maternal Uncle Kidney Disease Mother age 94 Cancer Sister 1 leukemia Diabetes Sister 1 Cancer Sister 2 bone and blood cancer Rheum Arthritis Sister 2 Anesth Problems Neg Hx Relation Name Status Comments Brother 1 Brother 2 Alive Daughter Alive Father Maternal Uncle Mother age 94 Sister 1 Sister 2 Alive Sister 3 unknown Son Alive Social History Tobacco Use Types Packs/Day Years Used Date Smoking Tobacco: Every Day Cigarettes 1 63.4 Started: 1961 Passive Smoke Exposure: Never Smokeless Tobacco: Never Tobacco Cessation:Ready to Q uit: No; Counseling Given: Yes Alcohol Use Standard Drinks/Week Comments No 0 (1 standard drink = 0.6 oz pur e alcohol) Comments No Sex and Gender Information Value Date Recorded Sex Assigned at Not on file Legal Sex Female 1:24 PM EDT Gender Identity Not on file Sexual Orientation Not on file Obstetrics History Last Filed Vital Signs Vital Sign Reading Time Taken Comments Blood Pressure 108/54 11/29/2024 2:08 PM EDT Pulse 72 11/29/2024 2:03 PM EDT Temperature 36.2 C (97.2 F) 11/29/2024 2:03 PM EDT Respiratory Rate 16 02/23/2024 12:06 PM EDT Oxygen Saturation 97% 11/26/2020 6:58 PM EDT Inhaled Oxygen Concentration - - Weight 51.8 kg (114 lb 3.2 oz) 11/29/2024 2:03 P M EDT Height 154.9 cm (5' 1 ) 11/29/2024 2:03 PM EDT Body Mass Index 21.58 11/29/2024 2:03 PM EDT Plan of Treatment Health Maintenance Due Date Last Done Comments Wellness Exam Medicare 1948 Hepatitis C Screening 12/20/1963 DTaP/TDaP/Td (1 - Tdap) 1964 Zoster (1 of 2) 12/20/1995 Pneumococcal Vaccine 50+ (2 of 2 - PCV) 06/08/2018 06/08/2017, 05/31/2015 RSV or 60+ (1 - 1-dose 75+ series) 2020 COVID-19 Vaccine (3 - season) 2024 11/23/2020, 10/24/2020 Low Dose Lung Cancer Screening 03/10/2025 03/10/2024, 01/20/2022, 05/22/2016, Additional history exists Bone Density Screening Completed 03/23/2021 Influenza Vaccine Completed 06/17/2024, , 06/08/2017, Additional history exists Hepatitis B Vaccine Aged Out No longe r eligible based on patient's age to complete this topic Meningococcal B Vaccine Aged Out No l onger eligible based on patient's age to complete this topic Medical Devices Implanted Type Area Head Wrestling Coach Device Identifier Shelf Expiration Date Model / Serial / Lot Pacemaker Lens Trident Ii Tritanium Clusterhole 48d - [id number] Implanted:Qty: 1 on 06/13/2020 by Jakcy Alvarado MD at [facility] Right: Hip VAHID:ORTHOPED [facility] [id number] 04/24/2025 702-04-48 D / / [id number] Screw Trident Ii Hex Low Profile 6.5mm X 25mm - [id number] Implanted:Qty: 1 on 06/13/2020 by Jacky Alvarado MD at [facility] Right: Hip VAHID:ORTHOPED ICS 11/19/2024 0941-9267 / / [id number] Insert Trident X 3 0 Degree 36mm D - [id number] Implanted:Qty: 1 on 06/13/2020 by Jacky Alvarado MD at [facility] Right: Hip VAHID:ORTHOPED ICS [id number] 04/27/2025 623-00-36 D / / [id number] Size 4 Accolade Ii 127 Deg - [id number] Implanted:Qty: 1 on 06/13/2020 by Jacky Alvarado MD at [facility] Right: Hip VAHID:ORTHOPED ICS [id number] 04/30/2025 [id number] / / [id number] Head Fem -5mm Ofst Tpr 36mm Hip Blx D V40 Strl - [id number] Implanted:Qty: 1 on 06/13/2020 by Jacky Alvarado MD at [facility] Right: Hip VAHID:ORTHOPED ICS [id number] 05/16/2025 6570-0-03 [id number] Procedures Procedure Name Priority Date/Time Associated Diagnosis Comments CT ANGIOGRAM CHEST ABDOMEN PELVIS W CONTRAST Routine 03/10/2024 7:04 PM EDT Dissection of aorta, unspecified portion of aorta (HCC) DX BONE DENSITY AXIAL INCLUDING VERTEBRAL FRACTURE ASSESSMENT Routine 03/23/2021 1:14 PM EDT DDD (degenerative disc disease), lumbar Left sided sciatica Age related osteoporosis, unspecified pathological fracture presence from Last 3 Months or Most Recently Relevant to Health Maintenance Results * CT ANGIOGRAM CHEST ABDOMEN PELVIS W CONTRAST (03/10/2024 7:04 PM EDT) Anatomical Region Laterality Modality Abdomen, Pelvis, Chest Computed Tomography 03/10/2024 7:0 4 PM EDT Impressions 03/11/2024 8:38 AM EDT 1. No aortic aneurysm or dissection. 2. 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 3. Left lower lobe multifocal endobronchial plugging and peribronchial thickening. This finding is new since 2016 but could be to be due to chronic aspiration. - Note: Radiology results need to be interpreted within a comprehensive clinical context. If you have questions about the radiology report, please contact the office of the ordering clinician. Narrative 03/11/2024 8:[address] ANGIOGRAM CHEST ABDOMEN PELVIS W CONTRAST 03/10/2024 7:04 PM CLINICAL HISTORY: I71.00-Dissection of unspecified site of aorta (HCC)-ICD-10-CM. COMPARISON: 05/22/2016 PROCEDURE COMMENTS: Multidetector CT angiography of the region of interest. Isovue 370 IV contrast given as recorded in EPIC. Multiplanar reconstructions generated and reviewed, including 3D MIPS. Dose 1 : CT DLP Total : 503.46 mGycm DLP Spiral Max : 366.28 mGycm Maximum CTDI Vol : 5.88 mGy FINDINGS: Vascular findings: No aortic aneurysm or dissection. Conventional aortic arch branching anatomy. The major aortic arch branch vessels are widely patent without evident flow limiting stenosis or occlusion. Patent celiac artery, SMA, BULMARO and bilateral single renal arteries. Mild scattered calcific atherosclerosis of the aortoiliac system. 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 No extension into the external or hypogastric arteries which are widely patent. Nonvascular findings: Mild coronary artery calcification. Cardiac conduction support apparatus. The heart is normal size. No pericardial effusion. No large central pulmonary embolism identified on this nondedicated exam. No suspicious intrathoracic lymph nodes. 1.4 cm lateral left upper lobe subpleural consolidation is relatively stable since 2016, likely scar (axial image 50). New left lower lobe multifocal endobronchial plugging and peribronchial thickening. No pleural effusion or pneumothorax. Status post cholecystectomy. Biliary dilation is likely secondary to the patient's postcholecystectomy state. No suspicious abnormality of the liver, pancreas, spleen, or adrenal glands. Stable 2.4 cm left renal cyst. No hydronephrosis. No bowel obstruction. No inflammatory bowel change. Uncomplicated distal colonic diverticulosis. Unremarkable appearance of the bladder. Status post hysterectomy. No suspicious pelvic mass. No acute or suspicious osseous abnormality. Right hip arthroplasty. Procedure Note Abdirashid Lala MD - 03/11/2024 CT ANGIOGRAM CHEST ABDOMEN PELVIS W CONTRAST 03/10/2024 7:04 PM CLINICAL HISTORY: I71.00-Dissection of unspecified site of aorta (HCC)-ICD-10-CM. COMPARISON: 05/22/2016 PROCEDURE COMMENTS: Multidetector CT angiography of the region ofinterest. Isovue 370 IV contrast given as recorded in EPIC. Multiplanarreconstructions generated and reviewed, including 3D MIPS. Dose 1 : CT DLP Total : 503.46 mGycm DLP Spiral Max : 366.28 mGycm Maximum CTDI Vol : 5.88 mGy FINDINGS: Vascular findings: No aortic aneurysm or dissection. Conventional aortic arch branchinganatomy. The major aortic arch branch vessels are widely patent without evidentflow limiting stenosis or occlusion. Patent celiac artery, SMA, BULMARO andbilateral single renal arteries. Mild scattered calcific atherosclerosis of the aortoiliac system. Nonflow-limiting dissection of the mid and distal right common iliacartery. No extension into the external or hypogastric arteries which are widelypatent. Nonvascular findings: Mild coronary artery calcification. Cardiac conduction support apparatus.The heart is normal size. No pericardial effusion. No large centralpulmonary embolism identified on this nondedicated exam. No suspicious intrathoracic lymph nodes. 1.4 cm lateral left upper lobe subpleural consolidation is relativelystable since 2016, likely scar (axial image 50). New left lower lobe multifocal endobronchial plugging and peribronchial thickening. No pleural effusionor pneumothorax. Status post cholecystectomy. Biliary dilation is likely secondary to the patient's postcholecystectomy state. No suspicious abnormality of theliver, pancreas, spleen, or adrenal glands. Stable 2.4 cm left renal cyst. No hydronephrosis. No bowel obstruction. No inflammatory bowel change. Uncomplicated distalcolonic diverticulosis. Unremarkable appearance of the bladder. Status post hysterectomy. Nosuspicious pelvic mass. No acute or suspicious osseous abnormality. Right hip arthroplasty. IMPRESSION: 1. No aortic aneurysm or dissection. 2. Nonflow-limiting dissection of the mid and distal right common iliacartery. 3. Left lower lobe multifocal endobronchial plugging and peribronchial thickening. This finding is new since 2016 but could be to be due tochronic aspiration. - Note: Radiology results need to be interpreted within a comprehensiveclinical context. If you have questions about the radiology report, please contactthe office of the ordering clinician. us Josh Patino MD IMJoseph CT ORDERABLES Final Resul t * DX BONE DENSITY AXIAL INCLUDING VERTEBRAL FRACTURE ASSESSMENT (03/23/2021 1:14 PM EDT) Anatomical Region Laterality Modality Dexa Scan 03/23/2021 Narrative 03/26/2021 12:46 PM EDT Indication: The patient is a female age 65 or older who requires a bone density assessment. Study was performed on Horizon APEX 5. Bone Density: Region BMD T-score Z-score AP Spine (L3, L4) 0.750 -3.2 -0.6 Femoral Neck (Left) 0.675 -1.6 0.5 Total Hip (Left) 0.711 -1.9 -0.1 1/3 Radius (Left) 0.515 -3.0 -0.4 World Health Organization criteria for BMD interpretation classify patients as: Normal (T-score at or above -1.0), Low Bone Density (T-score between -1.0 and -2.5), or Osteoporotic (T-score at or below -2.5). T Scores are reported in Postmenopausal women and in men age 50 and older. Z-scores are reported in females prior to menopause and in males younger than age 50. 10-year Fracture Risk: FRAX not reported because: Some T-score for Spine Total or Hip Total or Femoral Neck at or below -2.5 Vertebral Deformity Assessment: Exam date 03/23/2021 Vertebral Level Impression T8 Normal T9 Normal T10 Normal T11 Normal T12 Normal L1 Normal L2 Normal L3 Normal L4 Normal A spine fracture indicates 5X risk for subsequent spine fracture and 2X risk for subsequent hip fracture. Clinical Information Provided by Patient: Smokes. Has rheumatoid arthritis. Has used or is currently using the following medications: Diuretic Has had or currently has the following medical conditions: Back pain, Hip pain Patient maximum height was 61 Menopause Age: 26 Patient is POSTMENOPAUSAL Has low body mass. Interpretation: Bone mineral density is in the osteoporotic range. A minimum of two years may be required between bone density studies due to inherent testing precision limitations. Intervals between BMD testing should be determined according to each patient's clinical status: typically one year after initiation or change of therapy is appropriate, with longer intervals once therapeutic effect is established. The spine portion of the study is limited by discordant vertebra. Following ISCD guidelines vertebra with more than 1.0 T-score difference between the vertebra and the adjacent vertebra have been deleted. The right hip portion of the study is omitted due to surgical hardware within the region of interest. The vertebral fracture assessment is interpretable from T8 to L4. No vertebral fractures are identified. The vertebral fracture assessment is normal. Note: VFA is designed to detect vertebral fractures and no other abnormalities. Reported by: Sarah Yoo PA-C, CCD on 03/25/2021 8:43:00 AM. Eric Calvert MD IMG DEXA ORDERABLES Final Result from Last 3 Months or Most Recently Relevant to Health Maintenance Insurance [place] Care Teams Postdoctoral Scientist Relationship Specialty Start Date End Date Mary Marshall MD [address] [place] [address] PCP - General Family Medicine 12/04/15
--- OUTSIDE RECORDS SUMMARY | 2025-02-03 14:04 | XMS_ITS | Clinical Summary ---
Author Organization Healthcare Address [address] [place] [address] Care Team Providers Care Coat Repair Inspector Name Role Phone Per Patient, None Primary Care Provider [phone] Social History Tobacco Use Types Packs/Day Years Used Date Smoking Tobacco: Never Assessed Comments Unknown Sex and Gender Information Value Date Recorded Sex Assigned at Not on file Legal Sex Female 8:51 PM EDT Gender Identity Not on file Sexual Orientation Not on file Plan of Treatment Health Maintenance Due Date Last Done Comments [facility]-Bone Density Scan 1945 [facility]-Depression Screening 1945 [facility]-/Child/Adol SDOH Screenings 1945 [facility]- SDOH Screenings 12/20/1963 [facility]-Adult SDOH Screenings 12/20/1963 [facility]-DTaP,Tdap,and Td Vaccine s (1 - Tdap) 1964 [facility]-Zoster Vaccines (1 of 2) 12/20/1995 [facility]-Pneumococcal Vaccine: 50 + Years (2 of 2 - PCV) 05/31/2016 05/31/2015 [facility]-RSV Vaccine: 60+ Years o r (1 - 1-dose 75+ series) 2020 [id number] Vaccine (1 - 20 24-25 season) 2024 [facility]-Influenza Vaccine (Seas[place] n Ended) 2025 05/31/2015 HPV Vaccines Aged Out No longer eligi ble based on patient's age to complete this topic [facility]-HIB Vaccines Aged Out No longer e ligible based on patient's age to complete this topic [facility]-Hepatitis A Vaccines Aged Out No longer eligible based on patient's age to complete this topic [facility]-IPV Vaccines Aged Out No longer e ligible based on patient's age to complete this topic [facility]-Rotavirus Vaccines Aged Out No lo nger eligible based on patient's age to complete this [place] [address] HUMAN Care Teams Coat Repair Inspector Relationship Specialty Start Date End Date Per Patient, None, [address] [facility] [address] [place] [address] PCP - General 08/31/20
== END 2025-02-02 23:59 | disposition home or self-care (01) ==
LOC: LAB.DROPOF 02-03 14:01
PROVIDERS: PCP Family Medicine; Visit Provider Family Medicine
DX: D64.9 Anemia, unspecified (principal)
CPT/HCPCS: 83540; 83550; 85025

== ENCOUNTER 2025-06-23 14:43 | Emergency (ER) | payer MEDICARE, SELFPAY ==
[2025-06-23] VITALS (7 sets, daily range): BP systolic 135–181; BP diastolic 67–90; PULSE 60–76; RESP 17–18; TEMP 36.5–36.7; O2SAT 95–99; BMI 21.5
[2025-06-23 15:13] LABS: Hematocrit 42.1 % (37.0-47.0); Hemoglobin 14.1 g/dL (12.2-16.2); Immature Granulocytes % 0.3 %; Mean Corpuscular HGB Conc 33.5 g/dL (31.8-35.4); Mean Corpuscular Hemoglobin 31.8 pg (27.0-31.2); Mean Corpuscular Volume 94.8 fl (81-99); Nucleated Red Blood Cells % 0 %; Platelet Count 212 K/mm3 (142-424); Red Blood Count 4.44 M/mm3 (4.20-5.40); Red Cell Distribution Width-SD 54.4 fL; White Blood Count 10.8 K/mm3 (4.8-10.8)
--- OUTSIDE RECORDS SUMMARY | 2025-06-23 15:18 | XMS_ITS | Encounter Summary ---
Author Organization [facility] Address [address] [place] [address] Care Team Providers Care Library Cataloging Technician Name Role Phone Jamil Villeda MD Primary Care Provider Kinga Gannon RN Unavailable [phone] Coleen Burns NP Unavailable [phone] Allan Bruce MD Unavailable [phone] Gage Howard MD Unavailable [phone] Jamil Landon MD Unavailable Luh Forman RN Unavailable Unavailable Lenard Weinstein MD Unavailable [phone] Reason for Visit * Reason Onset Date Comments Foot Swelling 05/30/2021 Encounter Details Date Type Department Care Team (Late st Contact Info) Description 05/30/2021 Telephone [facility] Physicians - Heart & Vascular, [place] [address] [facility] [address] [place] [address] Jamil Landon MD [address] [facility] [address] [place] [address] Foot Swelling Social History Tobacco Use Types Packs/Day Years Used Date Smoking Tobacco: Every Day Cigarettes 1 55 Smokeless Tobacco: Never Alcohol Use Standard Drinks/Week Comments No 0 (1 standard drink = 0.6 oz pur e alcohol) Comments Unknown Sex and Gender Information Value Date Recorded Sex Assigned at Not on file Legal Sex Female 3:18 PM EDT Gender Identity Not on file Sexual Orientation Not on file COVID-19 Exposure Response Date Recorded In the last month, have you been in contact with someone who was confirmed or suspected to have Coronavirus / COVID-19? Unable to assess 05/20/2021 3:58 PM EDT documented as of this encounter Miscellaneous Notes * Telephone Encounter - Manju Olivas RN - 05/31/2021 9:42 AM EDT JOEL with Dr Howard was 05/2020. Has f/u with EP Dr Bruce. Forwarded note to Dr Teo bazzi. * Telephone Encounter - Britney Sheridan - 05/30/2021 4:26 PM EDT PT called and stated her feet and legs are swollen. Please call PT back. documented in this encounter Plan of Treatment Not on file documented as of this encounter Visit Diagnoses Not on filedocumented in this encounter Care Teams Library Cataloging Technician Relationship Specialty [place] [address] [place] [address] PCP - General Family Medicine 04/11/20 Kinga Gannon RN [address] [place], [place] [address] Registered Nurse 01/28/21 Coleen Burns NP [address] [place] [address] Registered Nurse 02/19/21 Allan Bruce MD [address] [place] [address]. [address] [place] [address] Clinical Cardiac Electrophysiology 03/28/21 Gage Howard MD [address] [place] [address] Cardiology 04/04/21 Jamil Landon MD [address] [place] [address] Interventional Cardiology 05/30/21 Luh Forman, DAVY Registered Nurse 05/31/21 Lenard Weinstein MD [address] [place] [address] Vascular Surgery 07/01/21 documented as of this encounter
--- OUTSIDE RECORDS SUMMARY | 2025-06-23 15:18 | XMS_ITS | Data Portability ---
Author Organization [facility] Medicine and [facility] [place] Address [address] [place] [address] Assessment No assessment recorded. Plan of Treatment Reminders Order Date Submit Date Provider Last Modified By Organization Details Last Modified Time Details Appointments None recorded. Lab None recorded. Referral None recorded. Procedures None recorded. Surgeries None recorded. Imaging XR, knee 2024 025 thomas [facility], [address] [place] [address] [place], [address], 5 14:50:17 XR, lumbar spine 2024 025 thomas [facility], [address] [place] [address] [place], [address], 5 14:50:17 XR, pelvis 2024 025 thmoas [facility], [address] [place] [address] [place], [address], 5 14:50:17 XR, hip, unilateral 2023 024 thomas [facility], [address] [place] [address] [place], [address], 4 15:46:08 Medication Orders Kenalog 10 mg/mL suspension for injection 2024 025 [email or web address] Not available 5 13:21:31 bupivacaine HCl 0.5 % (5 mg/mL) injection solution 2024 025 [email or web address] Not available 5 13:21:31 Medrol (Nehemiah) 4 mg tablets in a dose pack 2024 025 [facility] [id number], [address] [place] [address] , [place], [address], 5 09:26:05 Kenalog 10 mg/mL suspension for injection [address] [id number], [address] [place] [address] , [place], [address], 5 14:50:17 bupivacaine HCl 0.5 % (5 mg/mL) injection solution [address] [id number], [address] [place] [address] , [place], [address], 5 14:50:17 Medrol (Nehemiah) 4 mg tablets in a dose pack [address] [id number], [address] [place] [address] , [place], [address], 5 14:50:17 hydrocodone 5 mg-acetamin ophen 325 mg tablet 2023 024 [facility] [id number], [address] [place] [address] , [place], [address], 4 14:36:51 oxycodone-a cetaminophe n 5 mg-325 mg tablet 2023 024 [facility] [id number], [address] [place] [address] , [place], [address], 4 14:37:55 Patient TargetsNo targets recorded. Patient InstructionsNo instructions recorded. Reason for Referral None Reported. Results Created Date Observation Date Name Description Value Unit Range Abnormal Flag Note LastModifiedBy Organization Detail LastModifiedTime 06/27/20 24 06/27/2024 GLUCO SE POINT OF CARE note See Note Order ing Provi mary: Erica Sommer MD Not Available [address] , [place], [address], 06/27/2024 07:40:15 06/27/20 24 06/27/2024 GLUCO SE POINT OF CARE glucose point of care 108 mg/dL 70-99 high Not Available [address] , [place], [address], 06/27/2024 07:40:15 06/27/2006/27/2024 GLUCO SE POINT OF CARE performing lab see note [facility] [address] [place] [address] [place] [address] Not Available [address] , [place], [address], 06/27/2024 07:40:15 07/07/20 24 07/07/2024 US, duple x, venou s, lower extre mity, compl ete [facility] Name: SEKOU WALKER [address] [place] [address] [employer] Phys: Ros SANDERS,[place] [address] : 1945 Age: 78 Sex: F Acct: [id number] Loc: G.US PHONE #: [phone] Exam Date: 2023 Status : REG CLI FAX #: Rad# [id number] Unit# [id number] Admit Date: 2023 EXAMS: CPT CODE: [id number] DUPLEX VENOUS LOW BILAT 01381 HISTOR Y: Recent left total hip arthro [...] NAYAK Consul ting Provid er: ONUR witt [address] , [place], [address], 07/07/2024 16:06:56 08/08/20 24 XR, hip, unila teral No observ ation record ed. [email or web address] Soriano [address] , [place], [address], 08/08/2024 13:12:24 09/08/19 25 XR, pelvi s No observ ation record ed. BARBARA Barrios [facility] [address] [place], [address], 09/08/2024 13:46:09 09/08/19 25 XR, lumba r spine No observ ation record ed. BARBARA Barrios [facility] [address] [place], [address], 09/08/2024 13:46:27 09/08/19 25 XR, knee No observ ation record ed. BARBARA Barrios [facility] [address] [place], [address], 09/08/2024 13:48:30 01/18/20 25 11/30/2024 arter ial segme ntal press ure, lower extre mity No observ ation record ed. [email or web address] Not Available 2024 14:20:02 Result Notes None recorded. Problems Name Problem SNOMED Code Status Onset Date Resolution Date Notes Provider Name and Address Organization Details Recorded Time Osteoarthri tis of left hip joint 2204939531344 08 Active 2023 Coleman Sommer MD [address] [place] [address],[place] te [facility], [place], [address], [facility] & [place] 4 10:52:08 Renal mass 453723148 Active 2023 Coleman Sommer MD [address] [place] [address],[place] [address], [place], [address], [facility] & [place] 4 10:52:15 Problem Notes None [...] quadrivalent, PF 2 completed Ade Keaton null, [place] - [facility] & [place] 09/01/2023 10:43:13 COVID-19, mRNA, LNP-S, PF, 100 mcg/0.5mL dose or 50 mcg/0.25mL dose 1 completed Ade Keaton null, [place] - [facility] - [place] & [place] 09/01/2023 10:43:13 COVID-19, mRNA, LNP-S, PF, 100 mcg/0.5mL dose or 50 mcg/0.25mL dose 1 completed Ade Keaton null, [place] - [facility] & [place] 09/01/2023 10:43:13 pneumococcal polysaccharide PPV23 7 completed Ade Keaton null, [place] - [facility] - [place] & [place] 09/01/2023 10:43:13 Influenza, high-dose, trivalent, PF 7 completed Ade Keaton null, [place] - [facility] & [place] 09/01/2023 10:43:13 Influenza, split virus, trivalent, PF 0 completed Ade Keaton null, [place] - [facility] - [place] & [place] 09/01/2023 10:43:13 influenza, split (incl. purified surface antigen) 2 completed Ade Keaton null, [place] - [facility] - [place] & [place] 09/01/2023 10:43:13 Influenza, split virus, quadrivalent, PF 6 completed CAMPBELL Thomas - [place] & [place] 09/01/2023 10:43:13 Influenza, high-dose, trivalent, PF 4 completed CAMPBELL Thomas - [place] & [place] 07/07/2024 13:50:36 Past Encounters Encounter ID Performer Location Encounter Start Date Encounter Closed Date Diagnosis/Indication Diagnosis SNOMED-CT Code Diagnosis ICD10 Code Diagnosis IMO Codes Diagnosis Note [id number] Coleman Sommer MD [facility] [address] [place] [address] 9 08/18/2023 08:36:02 08/18/2023 09:20:24 History of total replacement of right hip joint 3130430653 19570 Z96.641 [id number] Coleman Sommer MD [facility] [address] [place] [address] 9 09/01/2023 10:30:34 09/01/2023 10:58:32 Low back pain 342343370 M54.50 Lumbar radiculitis 17526 59044 8496682 M54.16 [id number] Coleman Sommer MD [facility] [place] [address] 9 09/29/2023 13:36:47 09/29/2023 14:28:04 Right side sciatica 9000703416 69130 M54.31 Pain of hip region 05681 002 M25.388 [id number] Coleman Sommer MD [facility] [place] [address] 9 12/22/2023 13:13:09 12/22/2023 14:04:49 Trochanteric bursitis of left hip 4202130710 20141 M70.62 [id number] Coleman Sommer MD [facility] [place] [address] 9 02/04/2024 09:54:19 02/04/2024 10:50:13 Pain of left hip joint 9203558926 88719 M25.552 Osteoarthr itis of left hip joint 6816270895 06303 M16.12 Renal mass 895407140 N28 .89 [id number] Coleman Sommer MD [facility] [place] [address] 9 03/30/2024 15:38:02 03/30/2024 16:44:27 Pain of left hip joint 8646466593 20343 M25.552 Osteoarthr itis of left hip joint 3846738385 62623 M16.12 Renal mass 072871573 N28 .89 History of total replacement of right hip joint 7438974613 73913 Z96.399 [id number] Coleman Sommer MD [facility] [address] [place] [address] 9 07/07/2024 13:26:56 07/07/2024 14:20:41 History of total replacement of left hip joint 8522880531 418058 Z96.788 [id number] Coleman Sommer MD [facility] [address] [place] [address] 9 07/11/2024 12:45:30 07/11/2024 13:47:45 History of total replacement of left hip joint 9905900411 937172 Z96.643 [id number] Coleman Sommer MD [facility] [place] [address] 9 08/08/2024 12:57:52 08/08/2024 13:32:10 History of total replacement of left hip joint 2437424291 098432 Z96.139 [id number] BOBBY CLAY NP [facility] [place] [address] 9 09/08/2024 13:03:41 09/08/2024 14:36:03 Pain of bilateral hip joints 5519753519 9320269 M25.551 M25.552 Lumbar radiculitis 88274 30345 0878470 M54.16 Bilateral osteoarthritis of knees 3861997875 10694 M17.0 Pain in ri ght sacroiliac joint 5328768458 9023817 M53.3 Right side sciatica 3202 253119 28857 M54.[id number] [facility] [address] [place] [address] 11/03/2024 10:17:57 11/03/2024 11:19:06 Arthritis of left sacroiliac joint 8307330360 964523 M13.88 Health Concerns Section Related Observation LastModified by Organization Detai ls LastModified Time None Recorded Concern Status LastModified by Organization Details LastModified Time None Recorded Advance Directives Directive None Recorded Payers Insurance Date Sequence Insurance Name Policy Number Policy Begum Covered Member ID Begum Member ID Guarantor Name 09/08/2024 2 *SELF PAY* Be pallavi Walker 09/08/2024 2 [employer] Sekou Walker [id number] Sekou Walker 01/30/2025 2 [employer] Sekou Walker [id number] Sekou Walker 01/30/2025 1 [place] [id number] Sekou Walker [id number] Sekou Walker 03/30/2024 2 [employer] (MEDICARE SUPPLEMENT) Sekou Walker [id number] Sekou Walker Notes Date Note Type Note Provider Name and Address Organization Details Recorded Time 07/07/2024 text/html ROS as noted in the HPI Pt is here for increased pain of her left hip after her left CHLOE. Her DOS- 06/27/2024. She also has significant swelling of her lisbeth ankles. She was taking lortab since 2001 for her back. I did not repeat Xrays- E4SF Coleman oSmmer MD [address] [facility],[address], [place], [address], [facility] - [facility] 07/07/2024 14:37:57 07/11/2024 text/html ROS as noted in the HPI Pt is here for 2 week post op DOS 06.27.24. She came in last for increased hip pain. We ordered a US that was neg. She reports her hip is some better. E2SF BOBBY CLAY NP [address] [place] [address],[address], [place], [address], [facility] & [place] 07/13/2024 10:32:19 08/08/2024 text/html ROS as noted in the HPI Patient is here today for 6 week postop Left posterior total hip arthroplasty. States that she still has some pain but overall is doing better. E3 JS BOBBY CLAY, AARTI [address] [place] [address],[address], [place], [address], [facility] - [facility] & [place] 08/08/2024 13:34:33 09/08/2024 text/html ROS as noted in the HPI 78 year old female here today for bilateral hip pain, pain radiating down legs into bilateral knees, sudden onset 3 days ago-- no injury. She states percocet is ineffective, too soon to refill lortab, tylenol, ibuprofen, aleve and icy hot all ineffective as well. x-rays of AP pelvis, lateral lumbar and bilateral knees taken in office today. Coleman Sommer MD [address] [place] [address],[address], [place], [address], [facility] & [place] 09/09/2024 07:30:48 11/03/2024 text/html This [...] Patient was referred to pain mgmt in [place] last month but was told they are unable to see her. Patient would like to be referred to [facility] in [facility] so her daughter can take her to apt. Patient states the right SI joint injection given on 09.08.24 helped. E6AP DOS 06.27.24 Left posterior total hip arthroplastyAP Pelvis, lateral lumbar spine and 5v bilateral knee x-ray in office 09/08/24 BOBBY CLAY NP [address] [place] [address],[address], [place], [address], [place] - [facility] - [place] & [place] 11/04/2024 09:26:29 OBGyn Episode No OBEpisode recorded.
--- OUTSIDE RECORDS SUMMARY | 2025-06-23 15:18 | XMS_ITS | Clinical Summary ---
Author Organization [facility] [place] [address] Care Team Providers Care Protective Clothing Issuer Name Role Phone Unavailable Primary Care Provider [...] 12/20/1995 Zoster Vaccines (1 of 2) 12/20/1995 Influenza Vaccines 03/31/2025 COVID-19 Vaccines ( - season) 2025 HIB Vaccines Aged Out No longer eligi [...]
--- OUTSIDE RECORDS SUMMARY | 2025-06-23 15:19 | XMS_ITS | Clinical Summary ---
Author Organization [facility] Address [address] [place] [address] Care Team Providers Care Crtt Name Role Phone Jamil Villeda MD Primary Care Provider Kinga Gannon RN Unavailable Coleen Burns NP Unavailable [phone] Allan Bruce MD Unavailable [phone] Gage Howard MD Unavailable [phone] Jamil Landon MD Unavailable [phone] Lhu Forman RN Unavailable Unavailable Lenard Weinstein MD Unavailable [phone] Allergies Active Allergy Reactions Criticality Noted Date Comments Morphine Nausea And Vomiting 06/17/2017 Penicillins Swelling,Rash 05/13/2016 Rash swelling Medications aspirin 81 mg Tablet, Delayed Release (E.C.) Take 81 mg by mouth daily. Active pantoprazole (PROTONIX) 40 mg Tablet, Delayed Release (E.C.) 8 Active omeprazole (PRILOSEC) 20 mg capsule Take 20 mg by mouth daily. Active gabapentin (NEURONTIN) 300 mg capsule Take 300 mg by mouth 3 times daily. Active Hydrocodone-Dante taminophen (NORCO) 7.5-325 mg per tablet 1 Tab. 0 Active promethazine (PHENERGAN) 25 mg tablet Take 25 mg by mouth every 4 hours as needed. Active nitroglycerin (NITROSTAT) 0.[address] 1 Tab (0.4 mg total) under tongue every 5 minutes as needed for Chest pain. 25 Tab 4 0 Active furosemide (LASIX) 20 mg tablet Take 1 Tablet (20 mg total) by mouth as needed. 90 Tablet 3 1 Active Additional Information Patient taking differently:20 mg OralDAILY PRN, Reported on 11/28/2021 digoxin (LANOXIN) 0.125 mg tablet Take 1 Tablet (0.125 mg total) by mouth daily. 90 Tablet 3 1 Active diltiazem (CARDIZEM CD) 120 mg capsule Take 1 Capsule (120 mg total) by mouth every evening. 90 Capsule 3 2 Active diltiazem (DILACOR XR) 240 mg XR capsule Take 1 Capsule (240 mg total) by mouth every morning. 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 Pacemaker as big as a hockey puck Pulse generator problems (erosion?) 09/30/1984 PPM PGR Vitatron 8437 Classix SN [id number] 12/25/1995 RV SN [id number] Several revisions and pulse generator replacements, include Intermedics device, unknown model, at unknown date 10/03/2005 PPM AV Vitatron [id number]; RA [id number]; RV [id number], right venous access (Larien Manan, MD); left sided lead system abandoned after pulse generator removal. Left side venous occlusion. SVT (supraventricular tachycardia) 05/13/2016 Low blood pressure 05/13/2016 Tobacco use disorder 05/13/2016 Pacemaker battery depletion 05/13/2016 Family History Medical History Relation Name Comments Heart Disease Brother 1 70 Heart Disease Father 74 Sudden Sister 1 75 Cancer Sister 2 80 Multiple myelom a Diabetes Sister 3 60 Other Sister 4 3 Flux blood in stool Relation Name Status Comments Brother 1 70 Brother 2 72 Alive Brother 3 74 Alive Brother 4 58 Alive Brother 5 81 Brother 6 80 Father 74 Mother 94 Sister 1 75 Sister 2 80 Alive Sister 3 60 Sister 4 3 Social History Tobacco Use Types Packs/Day Years Used Date Smoking Tobacco: Every Day Cigarettes 1 55 Smokeless Tobacco: Never Tobacco Cessation:Ready to Q uit: No; Counseling Given: Yes Alcohol Use Standard Drinks/Week Comments No 0 (1 standard drink = 0.6 oz pur e alcohol) Comments Unknown Sex and Gender Information Value Date Recorded Sex Assigned at Not on file Legal Sex Female 3:18 PM EDT Gender Identity Not on file Sexual Orientation Not on file Last Filed Vital Signs Vital Sign Reading Time Taken Comments Blood Pressure 120/80 11/28/2021 3:33 PM EDT Pulse 81 11/28/2021 3:33 PM EDT Temperature 36.5 C (97.7 F) 07/02/2021 12:43 PM EDT Respiratory Rate 24 07/02/2021 4:45 PM EDT Oxygen Saturation 98% 07/02/2021 3:21 PM EDT Inhaled Oxygen Concentration - - Weight 47.6 kg (105 lb) 11/28/2021 3:33 PM EDT Height 154.9 cm (5' 1 ) 11/28/2021 3:33 PM EDT Body Mass Index 19.84 11/28/2021 3:33 PM EDT Plan of Treatment Health Maintenance Due Date Last Done Comments Tetanus Vaccination (Every 10 Years) 12/20/1963 Hepatitis C Virus (HCV) Screening 1966 Pneumococcal Vaccine: 50+ Ye ars (1 of 1 - PCV) 12/20/1995 Zoster-RZV(Shingrix) (1 of 2) 12/20/1995 Fall Risk Assessment 2010 Osteoporosis Screening 2010 RSV Vaccines (1 - 1-dose 75+ series) 2020 Advance Care Planning 08/31/2024 Depression Screening 08/31/2024 COVID-19 Vaccine ( - 2023-2 5 season) 2025 Influenza Vaccination (#1) 2025 Lipid Screening 05/28/2025 05/28/2020, 11/11/2018, 03/17/2018 Lung Cancer Screening Discontinued 01/20/2022 Procedures Procedure Name Priority Date/Time Associated Diagnosis Comments CT-CHEST W/O CONTRAST Routine 01/20/2022 6:29 PM EDT Epigastric pain LIPID PROFILE Routine 05/28/2020 12:11 PM EDT PVD (peripheral vascular disease) Mixed hyperlipidemia from Last 3 Months or Most Recently Relevant to Health Maintenance Results * CT-CHEST W/O CONTRAST (01/20/2022 6:29 PM EDT) Anatomical Region Laterality Modality Chest Computed Tomogra phy 01/21/2022 7:14 AM EDT Impressions 01/21/2022 7:22 AM EDT IMPRESSION: 1. Faint groundglass consolidation of the left lower lobe which may be secondary to an infectious or inflammatory etiology. 2. Scattered areas of atelectasis or scarring. 3. Atherosclerotic disease. Signed By: Jaime Cadena MD 01/21/2022 7:22 AM EDT EXAM: CT CHEST WITHOUT CONTRAST INDICATION: Epigastric pain COMPARISON: None TECHNIQUE: CT of the chest was performed without contrast. Axial images, multiplanar reformatted images and axial maximum intensity projection images provided for review. Individualized dose optimization technique was used in order to meet ALARA standards for radiation dose reduction. In addition to vendor specific dose reduction algorithms, the dose reduction techniques vary based on the specific scanner utilized but frequently include automated exposure control, adjustment of the mA and/or kV according to patient size, and use of iterative reconstruction technique. CONTRAST: None. FINDINGS: LUNGS AND AIRWAYS: Airways are patent. There is pleural parenchymal scarring of the bilateral lung apices. Focal, subpleural nodular consolidation is noted of the left upper lobe, image 48 of series 205 and image 59 of the coronal reconstructions. This is most suggestive of atelectasis or scarring. 3 mm nodule of the left upper lobe peripherally, image 214 of series 205. There is patchy groundglass consolidation, faint, the left lower lobe, image 255. PLEURA: No pleural effusions or pleural thickening. HEART AND GREAT VESSELS: Heart size is normal. There is atherosclerotic calcification of the coronary arteries and aortic arch. Generator device of the right chest with leads noted of the bilateral chest. ADENOPATHY/MEDIASTINUM: No adenopathy. CHEST WALL / LOWER NECK: No significant abnormality. UPPER ABDOMEN: No significant abnormality. BONES: No significant abnormality. Procedure Note Jaime Cadena MD - 01/21/2022 EXAM: CT CHEST WITHOUT CONTRAST INDICATION: Epigastric pain COMPARISON: None TECHNIQUE: CT of the chest was performed without contrast. Axial images,multiplanar reformatted images and axial maximum intensity projectionimages provided for review. Individualized dose optimization techniquewas used in order to meet ALARA standards for radiation dose reduction.In addition to vendor specific dose reduction algorithms, the dosereduction techniques vary based on the specific scanner utilized butfrequently include automated exposure control, adjustment of the mA and/or kV according to patient size, and use of iterative reconstructiontechnique. CONTRAST: None. FINDINGS: LUNGS AND AIRWAYS: Airways are patent. There is pleural parenchymalscarring of the bilateral lung apices. Focal, subpleural nodularconsolidation is noted of the left upper lobe, image 48 of series 205 andimage 59 of the coronal reconstructions. This is most suggestive ofatelectasis or scarring. 3 mm nodule of the left upper lobe peripherally,image 214 of series 205. There is patchy groundglass consolidation, faint, the left lower lobe,image 255. PLEURA: No pleural effusions or pleural thickening. HEART AND GREAT VESSELS: Heart size is normal. There is atheroscleroticcalcification of the coronary arteries and aortic arch. Generator deviceof the right chest with leads noted of the bilateral chest. ADENOPATHY/MEDIASTINUM: No adenopathy. CHEST WALL / LOWER NECK: No significant abnormality. UPPER ABDOMEN: No significant abnormality. BONES: No significant abnormality. IMPRESSION: 1. Faint groundglass consolidation of the left lower lobe which may besecondary to an infectious or inflammatory etiology. 2. Scattered areas of atelectasis or scarring. 3. Atherosclerotic disease. Signed By: Jaime Cadena MD us Jamil Landon MD IMG CT ORDERABLES Final Resu lt * (ABNORMAL) LIPID PROFILE (05/28/2020 12:11 PM EDT) Chol/HDL Ratio 3.3 0 - 5 TC E XTERNAL LAB Cholesterol 155 125 - 199 mg/dL TC EXTERNAL LAB Comment: TOTAL CHOLESTEROL INTERPRETATION: Less than 200 mg/dL Desireable 200-239 mg/dL Borderline Greater or Equal to 240 mg/dL High LDL Calculated 69 0 - 100 mg/dL TC EXTERNAL [facility] Comment: LDL CHOLESTEROL INTERPRETATION: Less than 100 mg/dL Optimal 100-129 mg/dL Near optimal/above optimal 130-159 mg/dL Borderline High 160-189 mg/dL High Greater or Equal to 190 mg/dL Very High HDL 47 40 - 180 mg/dL TC EXTERNAL [facility] Comment: HDL CHOLESTEROL INTERPRETATION: Less than 40 mg/dL Low Greater than 60 mg/dL Desirable Triglycerides 195(H) 0 - 150 mg/dL [facility] Comment: TOTAL TRIGLYCERIDE INTERPRETATION: Less than 150 mg/dL Normal 150-199 mg/dL Borderline HIgh 200-499 mg/dL High Greater or Equal to 500 mg/dL Very High Serum (Serum) 05/28/2020 12: 11 PM EDT 05/28/2020 6:56 PM EDT Narrative [facility] - 05/28/2020 7:10 PM EDT Has the patient fasted?->No us Gage Howard MD CHEMISTRY ORDERABLES Final Res ult [facility] [address] from Last 3 Months or Most Recently Relevant to Health Maintenance Insurance MEDICARE MEDICARE MEDICARE [address] Advance Directives For more information, please contact: [phone] * Full Code (Latest Code Status on File) Date Activated Date Inactivated Comments 06/24/2017 6:10 AM 07/27/2017 11:48 AM * Full Code Date Activated Date Inactivated Comments 06/17/2017 10:06 PM 06/18/2017 6:05 PM * Full Code Date Activated Date Inactivated Comments 06/17/2017 10:06 PM 06/17/2017 10:06 PM * Full Code Date Activated Date Inactivated Comments 05/21/2016 6:03 AM 05/21/2016 3:57 PM Care Teams Crtt Relationship Specialty [place] [address] [place] [address] PCP - General Family Medicine 04/11/20 Kinga Gannon, DAVY [address] [place], [place] [id number] Registered Nurse 01/28/21 Coleen Burns NP [address] [address] Registered Nurse 02/19/21 Allan Bruce MD [address] [place] [address] Clinical Cardiac Electrophysiology 03/28/21 Gage Howard MD [address] [place] [address] Cardiology 04/04/21 Jamil Landon MD [address] [place] [address] Interventional Cardiology 05/30/21 Luh Forman RN Registered Nurse 05/31/21 Lenard Weinstein MD [address] [place] [address] Vascular Surgery 07/01/21
--- OUTSIDE RECORDS SUMMARY | 2025-06-23 15:19 | XMS_ITS | Clinical Summary ---
Author Organization Healthcare Address [address] [place] [address] Care Team Providers Care Golf Course Superintendent Name Role Phone Per Patient, None Primary Care Provider [phone] Social History Tobacco Use Types Packs/Day Years Used Date Smoking Tobacco: Never Assessed Comments Unknown Sex and Gender Information Value Date Recorded Sex Assigned at Not on file Legal Sex Female 8:51 PM EDT Gender Identity Not on file Sexual Orientation Not on file Plan of Treatment Health Maintenance Due Date Last Done Comments [facility]-Bone Density Scan 1945 [facility]-Depression Screening 1945 [facility]-Infant/Child/Adol SDOH Screenings 1945 [facility]- SDOH Screenings 12/20/1963 [facility]-Adult SDOH Screenings 12/20/1963 [facility]-DTaP,Tdap,and Td Vaccine s (1 - Tdap) 1964 [facility]-Zoster Vaccines (1 of 2) 12/20/1995 [facility]-Pneumococcal Vaccine: 50 + Years (2 of 2 - PCV) 05/31/2016 05/31/2015 [facility]-RSV Vaccine: 60+ Years o r (1 - 1-dose 75+ series) 2020 [id number] Vaccine (1 - 20 24-25 season) 2025 [facility]-Influenza Vaccine (#1) 2025 05/31/2015 HPV Vaccines Aged Out No [...] age to complete this topic [place] [address] [facility] Care Teams Golf Course Superintendent Relationship Specialty Start Date End Date Per Patient, None, [address] [facility] [address] [place] [address] PCP - General 08/31/20
--- OUTSIDE RECORDS SUMMARY | 2025-06-23 15:19 | XMS_ITS | Clinical Summary ---
Author Organization [facility] Address [address] [facility] [place] [address] Phone Care Team Providers Care Christian Science Nurse Name Role Phone Mary Marshall MD Primary Care Provider [phone] Allergies Active Allergy Reactions Criticality Noted Date [...] t be different from the original. 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 08/09/2020 09/13/2020 Deep dehiscence of operation wound 07/30/2020 09/13/2020 Immunizations Immunization Administration Dates Next Due Influenza Patient Reported 05/31/2015 Pneumococcal Polysaccharide 23 Valent 05/31/2015 Surgical History Surgery Date Site/Laterality Comments PACEMAKER INSERTION 05/21/2016 APPENDECTOMY HYSTERECTOMY CARDIAC CATHETERIZATION COLONOSCOPY CARDIAC PACEMAKER PLACEMENT UPPER GASTROINTESTINAL ENDOSCOPY CHOLECYSTECTOMY, LAPAROSCOPIC 01/26/2020 N/A laparoscopic cholecystectomy ; Surgeon: Margot Pitts MD; Location: [facility] MAIN OR; Service: General EYE SURGERY Bilateral cataracts LASIK Left HIP ARTHROPLASTY 06/13/2020 Hip/Right RIGHT TOTAL HIP REPLACEMENT; Surgeon: Jacky Alvarado MD; Location: [facility] MAIN OR; Service: Orthopedics Medical devices from this surgery are in the Medical Devices section. Medical History Medical History Date Comments Emphysema of lung (HCC) GERD (gastroesophageal reflu x disease) Chronic back pain Arthritis states she has R A and osteoarthritis S/P placement of cardiac pacemaker since age 30 Hypertension AAA (abdominal aortic aneurysm) SSS (sick sinus syndrome) ([facility]) History of cardiac arrest Pacemaker [place] (myocardial infarction) ([facility]) Anesthesia complication woke up during surgery Non-pressure [...] Date Smoking Tobacco: Every Day Cigarettes 1 63.8 Started: 1961 Passive Smoke Exposure: Never Smokeless [...] 60+ (1 - 1-dose 75+ series) 2020 Low Dose Lung Cancer Screening 03/10/2025 03/10/2024, 01/20/2022, 05/22/2016, Additional history exists COVID-19 Vaccine ( season) 2025 11/23/2020, 10/24/2020 Influenza Vaccine (#1) 2025 , 07/08/2022, 06/08/2017, Additional history exists Bone Density Screening Completed 03/23/2021 Hepatitis B Vaccine Aged Out No longe r eligible based on patient's age to complete this topic Meningococcal B Vaccine Aged Out No l onger eligible based on patient's age to complete this topic Medical Devices Implanted Type Area Seamless Tube Roller Device Identifier Shelf Expiration Date Model / Serial / Lot Pacemaker Lens Trident Ii Tritanium Clusterhole 48d - [id number] Implanted:Qty: 1 on 06/13/2020 by Jacky Alvarado MD at [facility] Right: Hip VAHID:ORTHOPED ICS [id number] 04/24/2025 702-04-48 D / / [id number] Screw Trident Ii Hex Low Profile 6.5mm X 25mm - [id number] Implanted:Qty: 1 on 06/13/2020 by Jacky Alvarado MD at [facility] Right: Hip VAHID:ORTHOPED ICS 11/19/2024 [id number] / / [id number] Insert Trident X 3 0 Degree 36mm D - [id number] Implanted:Qty: 1 on 06/13/2020 by Jacky Alvarado MD at [facility] Right: Hip VAHID:ORTHOPED ICS [id number] 04/27/2025 623-00-36 D / / [id number] Size 4 Accolade Ii 127 Deg - [id number] Implanted:Qty: 1 on 06/13/2020 by Jacky Alvarado MD at [facility] Right: Hip VAHID:ORTHOPED ICS [id number] 04/30/2025 [id number] / / [id number] Head Fem -5mm Ofst Tpr 36mm Hip Blx D V40 Strl - [id number] Implanted:Qty: 1 on 06/13/2020 by Jacky Alvarado MD at [facility] Right: Hip AVHID:ORTHOPED ICS [id number] 05/16/2025 6570-0-03 [id number] Procedures Procedure Name Priority Date/Time Associated Diagnosis [...] Modality Abdomen, Pelvis, Chest Computed Tomography 03/10/2024 7:04 PM EDT Impressions 03/11/2024 8:38 AM EDT 1. No aortic aneurysm or dissection. 2. 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 3. Left lower lobe multifocal endobronchial plugging and peribronchial thickening. This finding is new since 2015 but could be to be due to [...] the ordering clinician. us Josh Patino MD IMG CT ORDERABLES Final Resul t * DX BONE DENSITY AXIAL INCLUDING VERTEBRAL FRACTURE ASSESSMENT (03/23/2021 1:14 PM EDT) Anatomical Region Laterality Modality Dexa Scan 03/23/2021 Narrative 03/26/2021 12:46 PM EDT Indication: The patient is a female age 65 or older who requires a bone density assessment. Study was performed on Xendo 5. Bone Density: Region BMD T-score Z-score [...] on 03/25/2021 8:43:00 AM. Eric Calvert MD IMJoseph DEXA ORDERABLES Final Result from Last 3 Months or Most Recently Relevant to Health Maintenance Insurance [place]ICARE [place] Care Teams Christian Science Nurse Relationship Specialty Start Date End Date Mary Marshall MD [address] [place] [address] PCP - General Family Medicine 12/04/15
[2025-06-23 15:23] LABS: Albumin Level 3.9 g/dl (3.5-5.0); Chloride 103 mmol/L (98-107); Potassium 4.1 mmoL/L (3.5-5.1); Sodium 131 mmol/L (136-145)
[2025-06-23 15:25] LABS: Blood Urea Nitrogen 11 mg/dl (7-17); Creatinine Clearance Estimated 37 mL/min (50-200); Creatinine,Serum 0.70 mg/dl (0.52-1.04); Estimated Glomerular Filt Rate 81 ml/min (>60); GFR (African American) 98 ML/MIN (>60)
[2025-06-23 15:26] LABS: Albumin/Globulin Ratio 1.3 (1.1-1.8); Alkaline Phosphatase 114 U/L (38-126); Anion Gap 8.1 mEq/L (5-15); Bilirubin,Total 0.7 mg/dl (0.2-1.3); Calcium 8.4 mg/dl (8.4-10.2); Carbon Dioxide 24 mmol/L (22.0-30.0); Globulin 2.9 g/dL (1.3-3.2); Glucose 99 mg/dl (74-100); Total Protein,Serum 6.8 g/dl (6.3-8.2)
[2025-06-23 15:31] LABS: Alanine Aminotransferase 13 U/L (12-78); Aspartate Amino Transferase 28 U/L (14-36)
--- NOTE | 2025-06-23 16:08 | [facility].EDGENADL ---
Discharge Plan Disposition Patient Disposition: Home, Self-Care Condition: Good Prescriptions Prescriptions: No Action ipratropium-albuterol 20-100 mcg/actuation mist 1 puff inhalation Q6H Qty: 4 10RF cetirizine [Zyrtec] 10 mg tablet 10 mg PO DAILY Qty: 30 2RF atorvastatin 40 mg tablet 40 mg PO DAILY nitroglycerin 0.4 mg tablet, sublingual 0.4 mg sublingual Q5M PRN Rx Instructions: do not exceed 3 doses per episode clopidogrel [Plavix] 75 mg tablet 75 mg PO DAILY furosemide [Lasix] 20 mg tablet 20 mg PO Q OTHER DAY celecoxib [Celebrex] 200 mg capsule 200 mg PO DAILY metoprolol succinate 25 mg tablet extended release 24 hr 25 mg PO DAILY trazodone 100 mg tablet 100 mg PO HS PRN (Reason: sleep) Qty: 90 3RF metoclopramide HCl [Reglan] 10 mg tablet 10 mg PO Q6H PRN (Reason: nausea and vomiting) Qty: 120 0RF Rx Instructions: use sparingly for nausea that is caused by the stomach emptying slowly aspirin 81 mg tablet,delayed release (DR/EC) 81 mg PO DAILY diltiazem HCl 240 mg capsule,extended release 24hr 240 mg PO Q24H furosemide 40 mg tablet 40 mg PO DAILY fluticasone propion-salmeterol [Advair Diskus] 250-50 mcg/dose blister with device 1 inh inhalation BID Qty: 60 10RF promethazine 25 mg tablet 25 mg PO TID PRN (Reason: nausea and vomiting) Qty: 90 3RF albuterol sulfate 2.5 mg /3 mL (0.083 %) solution for nebulization 2.5 mg inhalation Q6H Qty: 90 10RF ferrous sulfate 325 mg (65 mg iron) tablet 325 mg PO BID Qty: 60 0RF omeprazole 20 mg capsule,delayed release(DR/EC) See Rx Instructions .ROUTE .COMPLEX Qty: 90 0RF Dose Instruction: TAKE 1 CAPSULE BY MOUTH DAILY FOR ACID REFLUX Rx Instructions: TAKE 1 CAPSULE BY MOUTH DAILY FOR ACID REFLUX buspirone 10 mg tablet See Rx Instructions .ROUTE .COMPLEX Qty: 60 0RF Dose Instruction: TAKE 1 TABLET BY MOUTH 2 TIMES A DAY NEEDED FOR ANXIETY Rx Instructions: TAKE 1 TABLET BY MOUTH 2 TIMES A DAY NEEDED FOR ANXIETY gabapentin 300 mg capsule 300 mg PO BID Qty: 60 2RF Rx Instructions: note dose reduction oxycodone-acetaminophen [Percocet] 7.5-325 mg tablet 1 tab PO Q8H PRN (Reason: pain) Qty: 90 0RF albuterol sulfate 90 mcg/actuation HFA aerosol inhaler 2 puff inhalation QID PRN (Reason: shortness of breath or wheezing) Qty: 8.5 12RF Rx Instructions: please provide spacer w/instructions Referrals Follow up/Referrals: Jamil Villeda MD [Primary Care Provider, Family Practice] - See instructions Activity Restrictions/Add. Instructions Additional Instructions/Restrictions: Take your medications as prescribed. Take your blood pressure each morning before you take your medications. Follow-up with your primary care provider since your medications was increased. Stop taking your medications if your blood pressure is lower than 100 on the top. Clinical Impressions Clinical Impression: Headache Print Language Print Language: [place] Discharge ED Provider: Elena Singleton Adult HPI General Chief complaint: Headache Stated complaint: bp 186/160- headache Time Seen by Provider: 06/23/25 16:08 Mode of Arrival: Ambulatory Source of Information: Patient Description of Symptoms (Recalled from ER Triage Doc. by RN): Pt presents for evaluation of a headache that came on gradually yesterday evening. Pt was seen at [facility] SBP was 210. Upon discharge it was SBP 15. Pt states she has taken tylenol and her prescribed oxycodone and still has a headache History of Present Illness HPI narrative: is a 79-year-old female with a past medical history of hypertension who presents to the emergency department with headache. Patient states that she was seen last evening at [facility] and had a significantly elevated blood pressure. Patient states that she was given medications at that time they recommended that she increase her blood pressure medications and she was discharged home. Patient states that at the time of discharge she felt significantly improved but states that her headache returned today. Patient states that it was gradual onset. Posterior headache. Patient does not have any visual changes. Patient denies any numbness or weakness. Patient has not had any falls. Patient is on aspirin as well as clopidogrel. States that she takes 25 of metoprolol was told to increase this at her emergency department visit last night but did not do this. Related Data Home Medications ?Medication ?Instructions ?Recorded ?Confirmed aspirin 81 mg tablet,delayed 81 mg PO DAILY Blood thinner 02/21/21 05/25/25 release atorvastatin 40 mg tablet 40 mg PO DAILY 02/05/24 05/25/25 celecoxib 200 mg capsule (Celebrex) 200 mg PO DAILY 02/05/24 05/25/25 clopidogrel 75 mg tablet (Plavix) 75 mg PO DAILY 02/05/24 05/25/25 furosemide 20 mg tablet (Lasix) 20 mg PO Q OTHER DAY 02/05/24 05/25/25 metoprolol succinate 25 mg 25 mg PO DAILY 02/05/24 05/25/25 tablet,extended release 24 hr nitroglycerin 0.4 mg sublingual 0.4 mg sublingual Q5M PRN 02/05/24 05/25/25 tablet diltiazem HCl 240 mg 240 mg PO Q24H 11/10/24 05/25/25 capsule,extended release 24 hr furosemide 40 mg tablet 40 mg PO DAILY 11/10/24 05/25/25 Previous Rx's ?Medication ?Instructions ?Recorded ipratropium 20 mcg-albuterol 100 1 puff inhalation Q6H #4 grams 10/05/23 mcg/actuation mist for inhalation cetirizine 10 mg tablet (Zyrtec) 10 mg PO DAILY #30 tabs 02/05/24 trazodone 100 mg tablet 100 mg PO HS PRN sleep #90 tabs 04/08/24 metoclopramide HCl 10 mg tablet 10 mg PO Q6H PRN nausea and 07/21/24 (Reglan) vomiting #120 tabs promethazine 25 mg tablet 25 mg PO TID PRN nausea and 07/27/24 vomiting #90 tabs albuterol sulfate 2.5 mg/3 mL 2.5 mg (3 mL) inhalation Q6H COPD 08/11/24 (0.083 %) solution for nebulization #90 mL ferrous sulfate 325 mg (65 mg 325 mg PO BID #60 tabs 12/12/24 iron) tablet omeprazole 20 mg capsule,delayed See Rx Instructions .Route 02/27/25 release .COMPLEX #90 caps fluticasone 250 mcg-salmeterol 50 1 inh inhalation BID #60 ea 03/08/25 mcg/dose blistr powdr for inhalation (Advair Diskus) buspirone 10 mg tablet See Rx Instructions .Route 06/05/25 .COMPLEX #60 tabs gabapentin 300 mg capsule 300 mg PO BID #60 caps 06/16/25 oxycodone-acetaminophen 7.5 mg-325 1 tab PO Q8H PRN pain #90 tabs 06/21/25 mg tablet (Percocet) albuterol sulfate 90 mcg/actuation 2 puff inhalation QID PRN 06/22/25 aerosol inhaler shortness of breath or wheezing #8.5 grams Allergies Allergy/AdvReac Type Severity Reaction Status Date / Time Penicillins Allergy Severe Rash Verified 05/25/25 10:16 morphine AdvReac Severe Vomiting Verified 05/25/25 10:16 PFSH PFS Disclaimer: The information contained in this section may have been updated after the patient was seen, as this information can be updated by other users. Medical History History of pacemaker HLD (hyperlipidemia) [place] coronary artery calcium score greater than 400 Back Pain Surgical History History of right hip replacement History of hysterectomy History of cholecystectomy History of colonoscopy Family History Other Family history of cancer Family history of hypertension Family history of stroke Social History Smoking Status: Never smoker years smoked: 60 quit status: not considering quitting alcohol intake: never substance use type: denies use current occupational status: retired Travel in the last 8 weeks?: None household members: spouse housing: house lives independently: Yes marital status: education level: middle school caffeine: Yes special coretta needs: No agree to transfusion: No do you feel safe at home: Yes victim of physical abuse: No victim of emotional abuse: No victim of sexual abuse: No would you like helpful sources: No Have you lived/traveled outside [place] in past 30 days?: No Contact w/someone who lives/traveled outside [place] past 30 days?: No Exposure to someone with infectious disease in past 14 days?: No Do you have a fever (greater than 100.4 F or 38 C)?: No Have you tested positive for COVID-19?: No Exposed to someone with COVID-19 in past 14 days?: No Do you have a sore throat?: No Do you have a cough?: No Do you have any weakness?: No Do you have any diarrhea?: No Are you experiencing any unusual bleeding?: No Do you have any muscle aches/pain?: No Do you have any abdominal pain?: No Are you experiencing loss of taste or smell?: No Other Medical History Have you received the Flu Vaccine for this season: No Have you received the Pneumonia Vaccine: Yes ROS Obtained: Yes All systems reviewed & no additional complaints except as documented and Yes Systems reviewed as appropriate & no additional complaints except as documented Physical Exam General General appearance: alert and in no apparent distress Head Head exam: atraumatic, normocephalic and normal inspection Eye Eye exam: Present normal appearance, PERRL and EOMI; Absent scleral icterus ENT ENT exam: Present normal exam and normal external ear exam Neck Neck exam: Present normal inspection and full ROM Chest Chest inspection: Present normal inspection and symmetric chest wall rise Respiratory Respiratory exam: Present normal lung sounds bilaterally; Absent respiratory distress or wheezes Cardiovascular Cardiovascular exam: Present regular rate, normal rhythm and normal heart sounds Abdominal Exam Abdominal exam: Present soft and distention; Absent tenderness, guarding or rebound Extremities Exam Extremities exam: Present normal inspection and full ROM Back Exam Back exam: Present normal inspection and full ROM Neurological Exam Neurological exam: Present alert, oriented X3, normal gait and reflexes normal; Absent motor sensory deficit Psychiatric Psychiatric exam: Present normal affect and normal mood Skin Skin exam: Present warm and dry Medical Decision Making Medical Records Medical records reviewed: Yes I reviewed the patient's medical records. Screening: Per USPSTF and CDC recommendations, given the prevalence of disease in our region, it is our hospital?s policy to screen for HIV and viral Hepatitis for all patients aged 18 and over and those with ongoing risk factors. Alexey Inquiry Pt receiving controlled substance: No Vital Signs: 06/23/25 14:52 06/23/25 16:06 06/23/25 16:45 Temperature 97.7 F Temperature Source Temporal Artery Scan Pulse Rate 76 66 Pulse Rate [Right] 70 Respiratory Rate 18 17 Blood Pressure 167/71 H 158/73 H Blood Pressure [Right Arm] 181/90 H Blood Pressure Mean Blood Pressure Mean [Right Arm] 120 Blood Pressure Source [Right Arm] Automatic Cuff Blood Pressure Position [Right Arm] Sitting 02 Sat by Pulse Oximetry 99 95 96 Oxygen Delivery Method Room Air Room Air Room Air 06/23/25 17:00 06/23/25 18:00 06/23/25 18:42 Temperature Temperature Source Pulse Rate 65 60 Pulse Rate [Right] Respiratory Rate 18 Blood Pressure 155/83 H 135/67 152/75 H Blood Pressure [Right Arm] Blood Pressure Mean 89 92 Blood Pressure Mean [Right Arm] Blood Pressure Source [Right Arm] Blood Pressure Position [Right Arm] 02 Sat by Pulse Oximetry 97 97 98 Oxygen Delivery Method Room Air Room Air 06/23/25 19:08 Temperature 98.0 F Temperature Source Pulse Rate 60 Pulse Rate [Right] Respiratory Rate 18 Blood Pressure 152/75 H Blood Pressure [Right Arm] Blood Pressure Mean Blood Pressure Mean [Right Arm] Blood Pressure Source [Right Arm] Blood Pressure Position [Right Arm] 02 Sat by Pulse Oximetry Oxygen Delivery Method Lab Data Lab results reviewed: Yes I reviewed the patient's lab results. Lab Results 06/23/25 15:04: WBC 10.8, RBC 4.44, Hgb 14.1, Hct 42.1, MCV 94.8, MCH 31.8 H, MCHC 33.5, RDW 15.7, Plt Count 212, MPV 10.0, Neut % (Auto) 73.1, Lymph % (Auto) 18.3, [place] % (Auto) 6.8, Eos % (Auto) 0.9, Baso % (Auto) 0.6, Neut # (Auto) 7.9 H, Lymph # (Auto) 2.0, [place] # (Auto) 0.7, Eos # (Auto) 0.1, Baso # (Auto) 0.1, Sodium 131 L, Potassium 4.1, Chloride 103, Carbon Dioxide 24, Anion Gap 8.1, BUN 11, Creatinine 0.70, Estimated Creat Clear 37, Estimated GFR 81, Est GFR ( Amer) 98, Glucose 99, Calcium 8.4, Total Bilirubin 0.7, AST 28, ALT 13, Alkaline Phosphatase 114, Troponin I < 0.01, Total Protein 6.8, Albumin 3.9, Globulin 2.9, Albumin/Globulin Ratio 1.3 06/23/25 15:04 06/23/25 15:04 Orders (Tests/Meds): ED MEDICATIONS Discontinued Medications Generic Name Dose Route Start Last Admin Trade Name Freq PRN Reason Stop Dose Admin Acetaminophen 1,000 mg 10/24/25 16:28 06/23/25 16:50 Acetaminophen 500mg Tab PO 06/23/25 16:29 1,000 mg ONCE ONE Administration Diphenhydramine HCl 25 mg 06/23/25 16:28 06/23/25 16:59 Diphenhydramine 50mg/Ml Vial IV 06/23/25 16:29 25 mg ONCE ONE Administration Magnesium Sulfate 2 gm in 50 mls @ 50 mls/hr 06/23/25 16:28 06/23/25 18:00 Magnesium Sulfate 2gm/50ml Premix IV 06/23/25 17:27 Infused ONCE ONE Infusion Metoprolol Succinate 25 mg 06/23/25 16:32 06/23/25 16:50 Metoprolol Succinate Xl 25mg Tablet PO 06/23/25 16:33 25 mg DAILY ONE Administration Prochlorperazine Edisylate 5 mg 06/23/25 16:28 06/23/25 17:00 Prochlorperazine 10mg/2ml Vial IV 06/23/25 16:29 5 mg ONCE ONE Administration ORDERS Category Date Time Status CT head/brain wo con Stat Cat Scan 06/23/25 16:28 Completed Complete Blood Count Auto Diff Stat Lab 06/23/25 15:04 Completed Comprehensive Metabolic Panel Stat Lab 06/23/25 15:04 Completed Trop I [Troponin I] Stat Lab 06/23/25 15:04 Completed Medical Decision Narrative: Patient is a 79-year-old female with a past medical history of hypertension who presents to the emergency department with headache. On arrival patient was hemodynamically stable with unremarkable vital signs. Differential includes but not limited to: Cranial hemorrhage, intracranial mass, tension headache, migraine headache, hypertensive emergency, hypertensive urgency, amongst others. Labs were reviewed and interpreted by myself: CBC showed no leukocytosis, hemoglobin was stable. CMP was unremarkable. Troponin was less than 0.01. EKG was reviewed and interpreted by myself and showed normal sinus rhythm [address] or T wave changes concerning for ischemia CT head was reviewed and interpreted by myself and showed no acute pathology. Patient was given medications for migraine cocktail. Patient was also given her additional 25 metoprolol that she was recommended to take. Patient's symptoms improved here in the emergency department. Repeat blood pressure was 150 systolic. At this time given patient's otherwise unremarkable workup with no signs of endorgan damage I felt the patient was appropriate and stable for discharge home. Patient was recommended to take her blood pressure daily and to follow-up with her primary care provider for further blood pressure management if needed. Patient was otherwise discharged home in stable condition return precautions were discussed. Critical Care Critical Care Time Critical Care Time: No
--- NOTE | 2025-06-23 16:28 | CT_ITS ---
PROCEDURE INFORMATION: Exam: CT Head Without Contrast Exam date and time: 06/23/2025 5:32 PM Age: 79 years old Clinical indication: Pain; Headache; Additional info: Headache, HTN TECHNIQUE: Imaging protocol: Computed tomography of the head without contrast. Radiation optimization: All CT scans at this facility use at least one of these dose optimization techniques: automated exposure control; mA and/or kV adjustment per patient size (includes targeted exams where dose is matched to clinical indication); or iterative reconstruction. COMPARISON: CT HEAD/BRAIN WO CON 03/13/2023 9:46 AM FINDINGS: Brain: There is moderate diffuse cerebral volume loss present. Multiple subcortical and deep hypoattenuating white matter foci are present, likely related to small vessel senescent changes and can also be seen with prior infectious / inflammatory insult, or prior traumatic events. No hyperattenuating foci are identified to suggest acute intracranial hemorrhage. Cerebral ventricles: No ventriculomegaly. Paranasal sinuses: Visualized sinuses are unremarkable. No fluid levels. Mastoid air cells: Visualized mastoid air cells are well aerated. Bones: Unremarkable. No acute fracture. Soft tissues: Unremarkable. IMPRESSION: 1. Multiple subcortical and deep hypoattenuating white matter foci are present, likely related to small vessel senescent changes and can also be seen with prior infectious / inflammatory insult, or prior traumatic events. 2. No hyperattenuating foci are identified to suggest acute intracranial hemorrhage.
[2025-06-23] MEDS: METOPROLOL SUCCINATE XL 25MG TABLET 25 MG PO (16:50)
[2025-06-23] MEDS: ACETAMINOPHEN 500MG TAB 1000 MG PO (16:50)
[2025-06-23] MEDS: PROCHLORPERAZINE 10MG/2ML VIAL 5 MG IV (17:00)
[2025-06-23] MEDS: MAGNESIUM SULFATE IN WATER 2 GM/50 ML PIGGYBACK IV (17:00)
--- NOTE | 2025-06-23 17:05 | ECG_ITS ---
APPROVED REPORT Exam: Resting ECG HR:66 bpm ECG Measurements Heart Rate [address] 151 P 83 QRSd 75 QRS 70 QT 409 T 75 QTc 422 Conclusion Normal sinus rhythm without acute ST or T wave changes concerning for ischemia Electronically signed by : Elena Singleton, 06/24/2025 00:41:28
[2025-06-23 17:40] LABS: Troponin I < 0.01 ng/ml (0.00-0.034)
== END 2025-06-23 19:10 | disposition home or self-care (01) ==
PROVIDERS: Student in an Organized Health Care Education/Training Program; Emergency Provider Student in an Organized Health Care Education/Training Program; PCP Family Medicine
DX: R51.9 Headache, unspecified (principal); E87.1 Hypo-osmolality and hyponatremia; I10 Essential (primary) hypertension; E78.5 Hyperlipidemia, unspecified; Z95.0 Presence of cardiac pacemaker; Z87.891 Personal history of nicotine dependence
CPT/HCPCS: 70450; 80053; 84484; 85025; 93005; 96365; 96375; 99285; J0780; J1200; J3475